=== PATIENT | female | born 1975 | race Caucasian/White ===

== ENCOUNTER 2018-04-30 06:37 | Emergency (ER) | payer BC, OTHER ==
[2018-04-30] MEDS ORDERED: NA CHLORIDE 0.9% 1,000 ML ONE (07:14)
[2018-04-30] MEDS ORDERED: MORPHINE 4 MG/ML SYR ONE ×3 (07:14→09:34)
[2018-04-30] MEDS ORDERED: ONDANSETRON 4 MG/2 ML VIAL ONE (07:14)
--- NOTE | 2018-04-30 07:36 | RAD REPORT ---
EXAM DESCRIPTION: CTAbdomen Pelvis W Contrast - 04/30/2018 7:29 am CLINICAL HISTORY: Abdominal pain. IV only;Abd pain COMPARISON: No comparisons TECHNIQUE: Biphasic CT imaging of the abdomen and pelvis was performed with 100 ml non-ionic IV cont rast. All CT scans are performed using dose optimization technique as appropriate and may include automated exposure control or mA/KV adjustment according to patient size. FINDINGS: The lung bases are clear. The liver, spleen, pancreas, adrenal glands and kidneys are within normal limits. No bowel obstruction, free air, free fluid or abscess. Moderate the colonic inflammatory changes are seen in the left lower quadrant of the abdomen surrounding a short segment of sigmoid colon with are multiple diverticula. This is compatible with moderate acute diverticulitis. No abscess seen. The meredith endix is normal. No evidence of significant lymphadenopathy. No suspicious bony findings. IMPRESSION: Moderate acute left lower quadrant diverticulitis without abscess.
[2018-04-30 07:54] LABS: Albumin 3.7 g/dL (3.4-5.0); Bilirubin Direct 0.2 mg/dL (0-0.2); Bilirubin Total 1.2 mg/dL (0.2-1.0); Protein, Total 8.4 g/dL (6.4-8.2)
[2018-04-30 07:55] LABS: Absolute Lymphocytes (CBC) 2.2 K/uL (0.7-4.9); Absolute Monocytes 1.2 K/uL (0.1-1.3); Absolute Neutrophil 16.1 K/uL (1.8-8.0); Basophils % 0.2 % (0-1.3); Eosinophils % 0.4 % (0-4.4); Hematocrit 41.3 % (36.0-45.0); Lymphocytes % 11.3 % (15.3-44.8); MCH 30.2 pg (27.0-35.0); MCV 89.1 fL (80-100); MPV 9.1 fL (7.6-11.3); Monocytes % 6.3 % (3.3-12.3); RBC Red Blood Cell Count 4.63 M/uL (3.86-4.86)
[2018-04-30] MEDS ORDERED: CIPROFLOXACIN HCL 500 MG TAB ONE (08:20)
[2018-04-30] MEDS ORDERED: METRONIDAZOLE 500mg IVPB 500 MG/100 ML BAG IV ONE (08:21)
--- NOTE | 2018-04-30 09:09 | ER ---
Nurse's Notes [facility] Name: Teri Yates Age: 42 yrs Sex: Female : 1975 Arrival Date: 04/30/2018 Time: 06:41 Bed 8 Private MD: Diagnosis: Diverticulitis of large intestine without perforation or abscess without bleeding Presentation: 04/30 06:59 Presenting complaint: Patient states: LLQ abd pain for the last month, worse recently, la1 N/V. Transition of care: patient was not received from another setting of care. Onset of symptoms was April 30, 2018. Risk Assessment: Do you want to hurt yourself or someone else? Patient reports no desire to harm self or others. Initial Sepsis Screen: Does the patient meet any 2 criteria? No. Patient's initial sepsis screen is negative. Does the patient have a suspected source of infection? No. Patient's initial sepsis screen is negative. Care prior to arrival: None. 06:59 Method Of Arrival: Ambulatory la1 06:59 Acuity: LORNA 3 la1 Historical: - Allergies: 07:00 Sulfa (Sulfonamide Antibiotics); la1 - Home Meds: 07:02 estradiol 1 mg Oral tab 1 tab once daily [Active]; ondansetron HCl 4 mg Oral tab 2 tabs la1 every 8 hours [Active]; progesterone micronized 200 mg oral cap 1 cap once daily [Active]; escitalopram oxalate 10 mg oral tab 1 tab once daily [Active]; lisinopril 10 mg Oral tab 1 tab once daily [Active]; - PMHx: 07:00 Diverticulitis; Hypertension; la1 - PSHx: 07:00 bladder sx; la1 07:14 Hysterectomy; Tubal ligation; rh1 - Immunization history:: Adult Immunizations up to date. - Social history:: Smoking status: unknown. - Ebola Screening: : No symptoms or risks identified at this time. Screenin:21 Abuse screen: Denies threats or abuse. Nutritional screening: No deficits noted. la1 Tuberculosis screening: No symptoms or risk factors identified. Fall Risk None identified. Assessment: 07:21 General: Appears uncomfortable, Behavior is calm, cooperative. Pain: Complains of pain la1 in left lower quadrant. Neuro: Level of Consciousness is awake, alert, obeys commands, Oriented to person, place, time, situation. Cardiovascular: Capillary refill < 3 seconds Patient's skin is warm and dry. Respiratory: Airway is patent Respiratory effort is even, unlabored, Respiratory pattern is regular, symmetrical, Breath sounds are clear bilaterally. GI: Abdomen is round non-distended, Bowel sounds present X 4 quads. Abd is soft X 4 quads Abdomen is tender to palpation in left upper quadrant and left lower quadrant. : No signs and/or symptoms were reported regarding the genitourinary system. 08:38 Reassessment: Patient appears in no apparent distress at this time. No changes from la1 previously documented assessment. Patient and/or family updated on plan of care and expected duration. Pain level reassessed. 09:54 Reassessment: Patient appears in no apparent distress at this time. No changes from la1 previously documented assessment. Patient and/or family updated on plan of care and expected duration. Pain level reassessed. Patient is alert, oriented x 3, equal unlabored respirations, skin warm/dry/pink. 09:54 Reassessment: pt awaiting ride, instructed to return to ER with worsening pain or la1 unable to tolerate PO. Vital Signs: 07:00 BP 129 / 104; Pulse 113; Resp 18; Pulse Ox 100% on R/A; la1 07:05 Temp 97.8(O); Weight 70.31 kg; la1 07:40 BP 122 / 70; Pulse 83; Resp 16; Pulse Ox 97% on R/A; la1 09:15 BP 113 / 78; Pulse 73; Resp 17; Pulse Ox 98% on R/A; Pain 6/10; sg 09:54 BP 120 / 74; Pulse 81; Resp 16; Pulse Ox 98% on R/A; la1 ED Course: 06:41 Patient arrived in ED. ag3 06:49 Kesha Whitman NP is PHCP. rh1 06:49 Aguilar Luna MD is Attending Physician. rh1 06:58 Fei Montes, ROJAS is Primary Nurse. la1 06:59 Triage completed. la1 07:01 Arm band placed on left wrist. la1 07:10 Radiology exam delayed due to test not completed at this time. mw3 07:17 Urine collected: clean catch specimen, clear, melissa colored. jb1 07:21 Inserted saline lock: 20 gauge in right antecubital area, using aseptic technique. la1 Blood collected. 07:22 Call light in reach. Side rails up X 1. la1 07:29 CT Abd/Pelvis - W/Contrast In Process Unspecified. EDMS 09:08 Gian Carrillo MD is Referral Physician. rh1 09:53 No provider procedures requiring assistance completed. IV discontinued, intact, la1 bleeding controlled, No redness/swelling at site. Pressure dressing applied. Administered Medications: 07:20 Drug: morphine 4 mg Route: IVP; Site: right antecubital; la1 07:36 Follow up: Response: No adverse reaction; Pain is decreased la1 09:53 Follow up: Response: No adverse reaction; Pain is decreased la1 07:20 Drug: Zofran 4 mg Route: IVP; Site: right antecubital; la1 07:36 Follow up: Response: No adverse reaction la1 07:21 Drug: NS 0.9% 1000 ml Route: IV; Rate: 1 bolus; Site: right antecubital; la1 09:53 Follow up: IV Status: Completed infusion la1 08:20 Drug: morphine 4 mg Route: IVP; Site: right antecubital; sg 09:25 Follow up: Response: No adverse reaction; No change in condition sg 08:20 Drug: Cipro 500 mg Route: PO; sg 09:25 Follow up: Response: No adverse reaction sg 08:20 Drug: Flagyl 500 mg Volume: 100 ml; Route: IVPB; Rate: 200 ml/hr; Infused Over: 30 sg mins; Site: right antecubital; 09:25 Follow up: Response: No adverse reaction; IV Status: Completed infusion sg 09:53 Follow up: IV Status: Completed infusion la1 09:30 Drug: morphine 4 mg Route: IVP; Site: right antecubital; sg 09:53 Follow up: Response: No adverse reaction; Pain is decreased la1 Outcome: 09:08 Discharge ordered by . rh1 09:53 Discharged to home ambulatory. la1 09:53 Condition: stable 09:53 Discharge instructions given to patient, Instructed on discharge instructions, follow up and referral plans. medication usage, Demonstrated understanding of instructions, follow-up care, medications. 10:16 Patient left the ED. la1 Signatures: Dispatcher [employer] EDVT Dany Roman jb1 Sharan Cole RN RN sg Fei Montes RN RN la1 Kesha Whitman, TENNIS INSTRUCTOR TENNIS INSTRUCTOR [email or web address] Senait Pearson 3 Raquel Mazariegos 3
--- NOTE | 2018-04-30 09:09 | EDPHYS ---
Physician Documentation [facility] Name: Teri Yates Age: 42 yrs Sex: Female : 1975 Arrival Date: 04/30/2018 Time: 06:41 Bed 8 Private MD: ED Physician Aguilar Luna HPI: 04/30 06:53 This 42 yrs old Female presents to ER via Ambulatory with complaints of rh1 Abdominal Pain. 06:53 The patient presents with abdominal pain in the lower abdomen, in the left lower rh1 quadrant. Onset: The symptoms/episode began/occurred 1 month(s) ago, and became worse 3 day(s) ago. The symptoms do not radiate. Associated signs and symptoms: Pertinent positives: nausea and vomiting, Pertinent negatives: blood in stools, diarrhea, dysuria, fever, vomiting blood. The symptoms are described as sharp, stabbing. Modifying factors: The symptoms are alleviated by nothing, the symptoms are aggravated by movement, pressure. Severity of pain: At its worst the pain was moderate in the emergency department the pain is unchanged. The patient has experienced a previous episode. The patient has been recently seen by a physician: 1 month(s) ago, with similar presenting complaints, and apparently given a diagnosis of diverticulitis at [facility] ([facility] Left lower abdominal pain began 3 days ago, gradually increasing. + N/V. She was seen 1 month ago at [facility] (formerly [facility]) for upper abdominal pain, dx with diverticulitis. She reports this pain is different than previous. She had f/u appointment with Dr. Carrillo, told symptoms not from diverticulitis, but "CT was abnormal," has pending labs and stool studies. She has no fever, last BM 2 days ago. No symptoms.. Historical: - Allergies: 07:00 Sulfa (Sulfonamide Antibiotics); la1 - Home Meds: 07:02 estradiol 1 mg Oral tab 1 tab once daily [Active]; ondansetron HCl 4 mg Oral tab 2 tabs la1 every 8 hours [Active]; progesterone micronized 200 mg oral cap 1 cap once daily [Active]; escitalopram oxalate 10 mg oral tab 1 tab once daily [Active]; lisinopril 10 mg Oral tab 1 tab once daily [Active]; - PMHx: 07:00 Diverticulitis; Hypertension; la1 - PSHx: 07:00 bladder sx; la1 07:14 Hysterectomy; Tubal ligation; rh1 - Immunization history:: Adult Immunizations up to date. - Social history:: Smoking status: unknown. - Ebola Screening: : No symptoms or risks identified at this time. ROS: 06:53 Constitutional: Negative for fever, chills rh1 06:53 Abdomen/GI: Positive for abdominal pain, nausea and vomiting, Negative for constipation, hematemesis, black/tarry stool, rectal bleeding. 06:53 Back: Negative for decreased range of motion, pain at rest, pain with movement, radiated pain. 06:53 : Negative for small amounts, burning with urination, vaginal discharge. 06:53 All other systems are negative. Exam: 06:53 Constitutional: This is a well developed, well nourished patient who is awake, alert, rh1 and in no acute distress. Head/Face: Normocephalic, atraumatic. 06:53 Neck: Trachea midline, and no cervical lymphadenopathy. Supple, full range of motion without nuchal rigidity. No Meningismus. Cardiovascular: Regular rate and rhythm with a normal S1 and S2. No gallops, murmurs, or rubs. No JVD. No pulse deficits. Respiratory: Lungs have equal breath sounds bilaterally, clear to auscultation. No rales, rhonchi or wheezes noted. No increased work of breathing. 06:53 Back: No spinal tenderness. No costovertebral tenderness. Full range of motion. Skin: Warm, dry with normal turgor. Normal color with no rashes, no lesions, and no evidence of cellulitis. 06:53 Constitutional: The patient appears uncomfortable. 06:53 Abdomen/GI: Inspection: abdomen appears normal, bruising, is not seen, distension, is not seen, Bowel sounds: normal, in all quadrants, active, all quadrants, Palpation: soft, in all quadrants, moderate abdominal tenderness, in the right upper quadrant, left upper quadrant, right lower quadrant and left lower quadrant, greatest LLQ, rebound tenderness, is not appreciated, Indicators: McBurney's point is not tender, Bates's sign is negative, Rovsing's sign is negative, Liver: no appreciated palpable abnormalities. 06:53 Neuro: Orientation: is normal, to person, place \\T\\ time. Mentation: is normal, lucid, able to follow commands, Motor: is normal, strength is normal, Sensation: is normal, no obvious gross deficits, Gait: is steady, at a normal pace, without difficulty. Vital Signs: 07:00 BP 129 / 104; Pulse 113; Resp 18; Pulse Ox 100% on R/A; la1 07:05 Temp 97.8(O); Weight 70.31 kg; la1 07:40 BP 122 / 70; Pulse 83; Resp 16; Pulse Ox 97% on R/A; la1 09:15 BP 113 / 78; Pulse 73; Resp 17; Pulse Ox 98% on R/A; Pain 6/10; sg 09:54 BP 120 / 74; Pulse 81; Resp 16; Pulse Ox 98% on R/A; la1 MDM: 06:53 Patient medically screened. rh1 09:07 Data reviewed: vital signs, nurses notes, lab test result(s), radiologic studies, CT rh1 scan, and as a result, I will discharge patient. Data interpreted: Pulse oximetry: on room air is 97 %. Interpretation: normal. Counseling: I had a detailed discussion with the patient and/or guardian regarding: the historical points, exam findings, and any diagnostic results supporting the discharge/admit diagnosis, lab results, radiology results, the need for outpatient follow up, a forming machine tender, to return to the emergency department if symptoms worsen or persist or if there are any questions or concerns that arise at home. ED course: pain improved, tolerating PO, discussed to follow up with Dr. Carrillo. 04/30 07:05 Order name: Basic Metabolic Panel; Complete Time: 07:57 04/30 07:05 Order name: CBC with Diff; Complete Time: 07:57 04/30 07:05 Order name: Creatinine for Radiology; Complete Time: 08:10 04/30 07:05 Order name: Hepatic Function; Complete Time: 07:57 04/30 07:05 Order name: Lipase; Complete Time: 07:57 04/30 07:17 Order name: Urine Dipstick--Ancillary (enter results) ms 04/30 07:05 Order name: CT Abd/Pelvis - W/Contrast; Complete Time: 07:44 04/30 07:05 Order name: IV Saline Lock; Complete Time: 07:21 04/30 07:05 Order name: Labs collected and sent; Complete Time: 07:21 04/30 07:05 Order name: Urine Dipstick-Ancillary (obtain specimen); Complete Time: 07:17 04/30 07:45 Order name: PO challenge; Complete Time: 07:48 rh1 Administered Medications: 07:20 Drug: morphine 4 mg Route: IVP; Site: right antecubital; la1 07:36 Follow up: Response: No adverse reaction; Pain is decreased la1 09:53 Follow up: Response: No adverse reaction; Pain is decreased la1 07:20 Drug: Zofran 4 mg Route: IVP; Site: right antecubital; la1 07:36 Follow up: Response: No adverse reaction la1 07:21 Drug: NS 0.9% 1000 ml Route: IV; Rate: 1 bolus; Site: right antecubital; la1 09:53 Follow up: IV Status: Completed infusion la1 08:20 Drug: morphine 4 mg Route: IVP; Site: right antecubital; sg 09:25 Follow up: Response: No adverse reaction; No change in condition sg 08:20 Drug: Cipro 500 mg Route: PO; sg 09:25 Follow up: Response: No adverse reaction sg 08:20 Drug: Flagyl 500 mg Volume: 100 ml; Route: IVPB; Rate: 200 ml/hr; Infused Over: 30 sg mins; Site: right antecubital; 09:25 Follow up: Response: No adverse reaction; IV Status: Completed infusion sg 09:53 Follow up: IV Status: Completed infusion la1 09:30 Drug: morphine 4 mg Route: IVP; Site: right antecubital; sg 09:53 Follow up: Response: No adverse reaction; Pain is decreased la1 Disposition: 18:27 Co-signature as Attending Physician, Aguilar Luna MD. Disposition: 04/30/18 09:08 Discharged to Home. Impression: Diverticulitis of large intestine without perforation or abscess without bleeding. - Condition is Stable. - Discharge Instructions: Diverticulitis. - Prescriptions for Flagyl 500 mg Oral Tablet - take 1 tablet by ORAL route every 8 hours for 10 days; 30 tablet. Cipro 500 mg Oral Tablet - take 1 tablet by ORAL route every 12 hours for 10 days; 20 tablet. Tylenol- Codeine #3 300-30 mg Oral Tablet - take 2 tablet by ORAL route every 6 hours As needed; 6 tablet. - Medication Reconciliation Form, Thank You Letter, Antibiotic Education, Prescription Opioid Use form. - Follow up: Gian Carrillo; When: 1 - 2 days; Reason: Recheck today's complaints, Continuance of care, Re-evaluation by your physician. Follow up: Emergency Department; When: As needed; Reason: Fever > 102 F, If symptoms return, Trouble breathing, Worsening of condition. - Problem is new. - Symptoms have improved. Signatures: Dispatcher [employer] EDMS Sharan Cole RN RN sg Fei Montes RN RN la1 Kesha Whitman, PC INSTALLATION ENGINEER PC INSTALLATION ENGINEER rh1 Aguilar Luna MD MD gs Corrections: (The following items were deleted from the chart) 10:16 09:08 04/30/2018 09:08 Discharged to Home. Impression: Diverticulitis of large la1 intestine without perforation or abscess without bleeding. Condition is Stable. Discharge Instructions: Diverticulitis. Prescriptions for Flagyl 500 mg Oral Tablet - take 1 tablet by ORAL route every 8 hours for 10 days; 30 tablet, Cipro 500 mg Oral Tablet - take 1 tablet by ORAL route every 12 hours for 10 days; 20 tablet, Tylenol-Codeine #3 300-30 mg Oral Tablet - take 2 tablet by ORAL route every 6 hours As needed; 6 tablet. and Forms are Medication Reconciliation Form, Thank You Letter, Antibiotic Education, Prescription Opioid Use. Follow up: Gian Carrillo; When: 1 - 2 days; Reason: Recheck today's complaints, Continuance of care, Re-evaluation by your physician. Follow up: Emergency Department; When: As needed; Reason: Fever > 102 F, If symptoms return, Trouble breathing, Worsening of condition. Problem is new. Symptoms have improved. rh1
[2018-04-30 18:26] LABS: Urine Blood NEGATIVE (NEG); Urine Glucose NEGATIVE (NEG); Urine Protein NEGATIVE (NEG); Urine pH 5.5 (5.0-7.0)
== END 2018-04-30 10:16 | disposition home or self-care (01) ==
LOC: ER 06:37
DX: K57.32 Diverticulitis of large intestine without perforation or abscess without bleeding (principal); I10 Essential (primary) hypertension; Z88.2 Allergy status to sulfonamides
CPT/HCPCS: 36415; 74177; 80048; 80076; 81003; 83690; 85025; 96361; 96365; 96375; 99284; J2405; J7030; Q9967

== ENCOUNTER 2018-07-19 21:17 | Inpatient (IN) | payer BC ==
--- NOTE | 2018-07-19 21:50 | ER ---
Nurse's Notes [facility] Name: Teri Yates Age: 42 yrs Sex: Female : 1975 Arrival Date: 07/19/2018 Time: 21:20 Bed 24 Private MD: Milton English Diagnosis: Abdominal tenderness;Diverticular disease of intestine;Diverticulitis of large intestine without perforation or abscess without bleeding Presentation: 07/19 21:24 Presenting complaint: Patient states: "I've been having a flare up of diverticulitis aj1 for about 8 days. I went to Dr. Carrillo's office today and his PA sent me over here for a CT scan and blood work and she prescribed some meds. I started feeling worse, I knew I was going to have trouble holding them down so I took 2 Tylenol #3 and nausea medicine and then just ended up vomiting it all, the pain is so much worse, I'm dizzy, I'm light-headed." Reports that she had CT scan and blood work done outpatient today. Transition of care: patient was not received from another setting of care. Onset of symptoms was July 19, 2018. Risk Assessment: Do you want to hurt yourself or someone else? Patient reports no desire to harm self or others. Initial Sepsis Screen: Does the patient meet any 2 criteria? HR > 90 bpm. No. Patient's initial sepsis screen is negative. Does the patient have a suspected source of infection? Yes: Acute abdominal pain. Care prior to arrival: None. 21:24 Method Of Arrival: Ambulatory aj1 21:24 Acuity: LORNA 3 aj1 Triage Assessment: 21:27 General: Appears uncomfortable, Behavior is cooperative, restless. Pain: Pain currently aj1 is 10 out of 10 on a pain scale. Pain: Complains of pain in abdomen diffusely Pain currently is 10 out of 10 on a pain scale. Neuro: Level of Consciousness is awake, alert, obeys commands. Cardiovascular: Patient's skin is warm and dry. Respiratory: Airway is patent Respiratory effort is even, unlabored, Respiratory pattern is regular, symmetrical. GI: Reports nausea, vomiting. GLOBAL MARKETING INTERN: 21:27 LMP N/A - Hysterectomy aj1 Historical: - Allergies: 21:27 Sulfa (Sulfonamide Antibiotics); aj1 - Home Meds: 21:27 escitalopram oxalate 10 mg Oral tab 1 tab once daily [Active]; estradiol 1 mg Oral tab aj1 1 tab once daily [Active]; lisinopril 10 mg Oral tab 1 tab once daily [Active]; ondansetron HCl 4 mg Oral tab 2 tabs every 8 hours [Active]; progesterone micronized 200 mg Oral cap 1 cap once daily [Active]; - PMHx: 21:27 Diverticulitis; Hypertension; aj1 - Immunization history:: Flu vaccine is up to date. - Social history:: Smoking status: Patient/guardian denies using tobacco. - Ebola Screening: : Patient denies travel to an Ebola-affected area in the 21 days before illness onset. - Family history:: not pertinent. Screenin:59 Abuse screen: Denies threats or abuse. Nutritional screening: No deficits noted. la1 Tuberculosis screening: No symptoms or risk factors identified. Fall Risk None identified. Assessment: 21:58 General: Appears uncomfortable, Behavior is cooperative. Pain: Complains of pain in la1 right lower quadrant and left lower quadrant and left upper quadrant and abdomen diffusely Pain currently is 10 out of 10 on a pain scale. Neuro: Level of Consciousness is awake, alert, obeys commands, Oriented to person, place, time, situation. Cardiovascular: Heart tones S1 S2 present Capillary refill < 3 seconds Patient's skin is warm and dry. Respiratory: Airway is patent Trachea midline Respiratory effort is even, unlabored, Respiratory pattern is regular, symmetrical. GI: Abdomen is round non-distended, Bowel sounds present X 4 quads. Abd is soft X 4 quads Abdomen is tender to palpation X 4 quads. Reports nausea, vomiting. : No signs and/or symptoms were reported regarding the genitourinary system. 07/20 00:09 Reassessment: Patient appears in no apparent distress at this time. No changes from la1 previously documented assessment. Patient and/or family updated on plan of care and expected duration. Pain level reassessed. Patient is alert, oriented x 3, equal unlabored respirations, skin warm/dry/pink. Vital Signs: 07/19 21:27 BP 158 / 102; Pulse 115; Resp 18; Pulse Ox 98% ; Weight 71.67 kg (R); Pain 10/10; aj1 23:32 BP 119 / 91; Pulse 71; Resp 16; Temp 98.7(TE); Pulse Ox 100% on R/A; la1 07/20 00:21 BP 136 / 74; Pulse 71; Resp 16; Pulse Ox 98% on R/A; la1 ED Course: 07/19 21:20 Patient arrived in ED. es 21:21 Milton English MD is Private Physician. es 21:26 Triage completed. aj1 21:27 Arm band placed on Patient placed in an exam room. aj1 21:35 Bebeto Henao MD is Attending Physician. bharti 21:38 Fei Montes RN is Primary Nurse. la1 21:45 Inserted saline lock: 20 gauge in left antecubital area, using aseptic technique. Blood jp3 collected. 21:45 Initial lab(s) drawn, by me, sent to lab. Patient maintains SpO2 saturation greater jp3 than 95% on room air. 21:49 Lizzy Orosco MD is Hospitalizing Provider. bharti 21:53 Bed in low position. Call light in reach. Side rails up X 1. Side rails up X2. Warm jp3 blanket given. Pillow given. Pulse ox on. NIBP on. 21:53 Basic Metabolic Panel Sent. jp3 21:53 CBC with Diff Sent. jp3 21:53 Creatinine for Radiology Sent. jp3 21:53 Hepatic Function Sent. jp3 21:54 Lipase Sent. jp3 21:54 Creatinine (Radiology Only) Sent. jp3 21:54 Basic Metabolic Panel Sent. jp3 21:54 CBC with Automated Diff Sent. jp3 07/20 01:03 No provider procedures requiring assistance completed. Patient admitted, IV remains in la1 place. Administered Medications: 07/19 22:01 Drug: Zofran 4 mg Route: IVP; Site: left antecubital; la1 22:21 Follow up: Response: No adverse reaction; Nausea is decreased la1 22:01 Drug: Flagyl 500 mg Volume: 100 ml; Route: IVPB; Rate: 200 ml/hr; Infused Over: 30 la1 mins; Site: left antecubital; 23:09 Follow up: IV Status: Completed infusion la1 22:02 Drug: NS 0.9% 1000 ml Route: IV; Rate: 1 bolus; Site: left antecubital; la1 22:22 Follow up: IV Status: Completed infusion la1 22:02 Drug: morphine 4 mg Route: IVP; Site: left antecubital; la1 22:22 Follow up: Response: No adverse reaction; Pain is decreased la1 22:03 Drug: Zofran 4 mg Route: IVP; Site: left antecubital; la1 22:21 Follow up: Response: No adverse reaction la1 23:28 Drug: Phenergan 12.5 mg Route: IVP; Site: left antecubital; la1 23:28 Follow up: Response: Nausea is decreased la1 23:28 Drug: Rocephin - (cefTRIAXone) 1 grams Route: IVPB; Infused Over: 30 mins; Site: left la1 antecubital; 23:28 Follow up: IV Status: Completed infusion la1 23:28 Drug: morphine 4 mg Route: IVP; Site: left antecubital; la1 23:29 Follow up: Response: No adverse reaction; Pain is decreased in1 07/20 00:08 Drug: NS 0.9% 1000 ml Route: IV; Rate: 1 bolus; Site: left antecubital; la1 00:15 Follow up: IV Status: Infusion continued upon admission la1 00:08 Drug: levofloxacin 750 mg Volume: 150 ml; Route: IVPB; Infused Over: 90 mins; Site: la1 left antecubital; 00:15 Follow up: IV Status: Infusion continued upon admission la1 Outcome: 07/19 21:50 Decision to Hospitalize by Provider. [facility] 07/20 01:03 Admitted to Tele accompanied by nurse, via stretcher, room 420, with chart. la1 Condition: stable Instructed on the need for admit. 01:03 Patient left the ED. la1 Signatures: Taryn Briggs, RN RN chase1 Bebeto Henao MD MD cha Salyer, Edna es Attema, Lee, RN RN la1 John Samuel jp3
--- NOTE | 2018-07-19 21:51 | EDPHYS ---
Physician Documentation [facility] Name: Teri Yates Age: 42 yrs Sex: Female : 1975 Arrival Date: 07/19/2018 Time: 21:20 Bed 24 Private MD: Milton English ED Physician Bebeto Henao HPI: 07/19 21:46 This 42 yrs old Female presents to ER via Ambulatory with complaints of bharti Abdominal Pain, Vomiting, Dizziness. 21:46 The patient presents to the emergency department with nausea, abdominal pain, of the bharti suprapubic area, left upper quadrant and left lower quadrant. Onset: The symptoms/episode began/occurred 2 day(s) ago. Possible causes: unknown. The symptoms are aggravated by movement, pressure. Associated signs and symptoms: The patient has no apparent associated signs or symptoms. Severity of symptoms: At their worst the symptoms were mild in the emergency department the symptoms are unchanged. The patient has not experienced similar symptoms in the past. [employer]: 21:27 LMP N/A - Hysterectomy aj1 Historical: - Allergies: 21:27 Sulfa (Sulfonamide Antibiotics); aj1 - Home Meds: 21:27 escitalopram oxalate 10 mg Oral tab 1 tab once daily [Active]; estradiol 1 mg Oral tab aj1 1 tab once daily [Active]; lisinopril 10 mg Oral tab 1 tab once daily [Active]; ondansetron HCl 4 mg Oral tab 2 tabs every 8 hours [Active]; progesterone micronized 200 mg Oral cap 1 cap once daily [Active]; - PMHx: 21:27 Diverticulitis; Hypertension; aj1 - Immunization history:: Flu vaccine is up to date. - Social history:: Smoking status: Patient/guardian denies using tobacco. - Ebola Screening: : Patient denies travel to an Ebola-affected area in the 21 days before illness onset. - Family history:: not pertinent. ROS: 21:46 Eyes: Negative for injury, pain, redness, and discharge, ENT: Negative for injury, bharti pain, and discharge, Neck: Negative for injury, pain, and swelling, Cardiovascular: Negative for chest pain, palpitations, and edema, Respiratory: Negative for shortness of breath, cough, wheezing, and pleuritic chest pain, Back: Negative for injury and pain, : Negative for injury, bleeding, discharge, and swelling, MS/Extremity: Negative for injury and deformity, Skin: Negative for injury, rash, and discoloration, Neuro: Negative for headache, weakness, numbness, tingling, and seizure, Psych: Negative for depression, anxiety, suicide ideation, homicidal ideation, and hallucinations, Allergy/Immunology: Negative for hives, rash, and allergies, Endocrine: Negative for neck swelling, polydipsia, polyuria, polyphagia, and marked weight changes. 21:46 Constitutional: Positive for malaise, poor PO intake. Exam: 21:46 Constitutional: This is a well developed, well nourished patient who is awake, alert, bharti and in no acute distress. Head/Face: Normocephalic, atraumatic. Eyes: Pupils equal round and reactive to light, extra-ocular motions intact. Lids and lashes normal. Conjunctiva and sclera are non-icteric and not injected. Cornea within normal limits. Periorbital areas with no swelling, redness, or edema. ENT: Nares patent. No nasal discharge, no septal abnormalities noted. Tympanic membranes are normal and external auditory canals are clear. Oropharynx with no redness, swelling, or masses, exudates, or evidence of obstruction, uvula midline. Mucous membranes moist. Neck: Trachea midline, no thyromegaly or masses palpated, and no cervical lymphadenopathy. Supple, full range of motion without nuchal rigidity, or vertebral point tenderness. No Meningismus. Chest/axilla: Normal chest wall appearance and motion. Nontender with no deformity. No lesions are appreciated. Cardiovascular: Regular rate and rhythm with a normal S1 and S2. No gallops, murmurs, or rubs. Normal PMI, no JVD. No pulse deficits. Respiratory: Lungs have equal breath sounds bilaterally, clear to auscultation and percussion. No rales, rhonchi or wheezes noted. No increased work of breathing, no retractions or nasal flaring. Back: No spinal tenderness. No costovertebral tenderness. Full range of motion. Female : Normal external genitalia. Skin: Warm, dry with normal turgor. Normal color with no rashes, no lesions, and no evidence of cellulitis. MS/ Extremity: Pulses equal, no cyanosis. Neurovascular intact. Full, normal range of motion. Neuro: Awake and alert, GCS 15, oriented to person, place, time, and situation. Cranial nerves II-XII grossly intact. Motor strength 5/5 in all extremities. Sensory grossly intact. Cerebellar exam normal. Normal gait. Psych: Awake, alert, with orientation to person, place and time. Behavior, mood, and affect are within normal limits. 21:46 Abdomen/GI: Inspection: abdomen appears normal, Bowel sounds: normal, Palpation: moderate abdominal tenderness, in the right lower quadrant and left lower quadrant, Liver: no appreciated palpable abnormalities, Hernia: not appreciated. Vital Signs: 21:27 BP 158 / 102; Pulse 115; Resp 18; Pulse Ox 98% ; Weight 71.67 kg (R); Pain 10/10; aj1 23:32 BP 119 / 91; Pulse 71; Resp 16; Temp 98.7(TE); Pulse Ox 100% on R/A; la1 07/20 00:21 BP 136 / 74; Pulse 71; Resp 16; Pulse Ox 98% on R/A; la1 MDM: 07/19 21:[address] [facility] 21:56 Data reviewed: vital signs, nurses notes, lab test result(s), radiologic studies, CT [facility] scan. 07/19 21:46 Order name: Basic Metabolic Panel [facility] 07/19 21:46 Order name: CBC with Diff [facility] 07/19 21:46 Order name: Creatinine for Radiology [facility] 07/19 21:46 Order name: Hepatic Function; Complete Time: 22:37 [facility] 07/19 21:46 Order name: Lipase; Complete Time: 22:37 [facility] 07/19 21:46 Order name: Urine Culture [facility] 07/19 21:46 Order name: Basic Metabolic Panel; Complete Time: 22:37 [facility] 07/19 21:46 Order name: CBC with Automated Diff; Complete Time: 22:37 [facility] 07/19 21:46 Order name: Creatinine (Radiology Only); Complete Time: 22:37 [facility] 07/20 00:44 Order name: Urine Dipstick--[facility]cillary ([facility] results[facility] 07/[facility] 21:46 Order name: IV Saline Lock; Complete Time: 21:53 [facility] 07/19 21:46 Order name: Labs collected and sent; Complete Time: 21:53 [facility] 07/19 21:46 Order name: Urine Dipstick-Ancillary (obtain specimen); Complete Time: 00:34 [facility] Administered Medications: 22:01 Drug: Zofran 4 mg Route: IVP; Site: left antecubital; la1 22:21 Follow up: Response: No adverse reaction; Nausea is decreased la1 22:01 Drug: Flagyl 500 mg Volume: 100 ml; Route: IVPB; Rate: 200 ml/hr; Infused Over: 30 la1 mins; Site: left antecubital; 23:09 Follow up: IV Status: Completed infusion la1 22:02 Drug: NS 0.9% 1000 ml Route: IV; Rate: 1 bolus; Site: left antecubital; la1 22:22 Follow up: IV Status: Completed infusion la1 22:02 Drug: morphine 4 mg Route: IVP; Site: left antecubital; la1 22:22 Follow up: Response: No adverse reaction; Pain is decreased la1 22:03 Drug: Zofran 4 mg Route: IVP; Site: left antecubital; la1 22:21 Follow up: Response: No adverse reaction la1 23:28 Drug: Phenergan 12.5 mg Route: IVP; Site: left antecubital; la1 23:28 Follow up: Response: Nausea is decreased la1 23:28 Drug: Rocephin - (cefTRIAXone) 1 grams Route: IVPB; Infused Over: 30 mins; Site: left la1 antecubital; 23:28 Follow up: IV Status: Completed infusion la1 23:28 Drug: morphine 4 mg Route: IVP; Site: left antecubital; la1 23:29 Follow up: Response: No adverse reaction; Pain is decreased la1 07/20 00:08 Drug: NS 0.9% 1000 ml Route: IV; Rate: 1 bolus; Site: left antecubital; la1 00:15 Follow up: IV Status: Infusion continued upon admission la1 00:08 Drug: levofloxacin 750 mg Volume: 150 ml; Route: IVPB; Infused Over: 90 mins; Site: la1 left antecubital; 00:15 Follow up: IV Status: Infusion continued upon admission la1 Disposition: 07/19/18 21:50 Hospitalization ordered by Lizzy Orosco for Inpatient Admission. Preliminary diagnosis are Abdominal tenderness, Diverticular disease of intestine, Diverticulitis of large intestine without perforation or abscess without bleeding. - Bed requested for Telemetry/MedSurg (Inpatient). - Status is Inpatient Admission. la1 - Condition is Fair. - Problem is new. - Symptoms have improved. UTI on Admission? No Signatures: Dispatcher [employer] EDTaryn Thapa, RN RN aj1 Bebeto Henao MD MD cha Attema, Lee RN RN la1 Madison Davila RN RN cg Corrections: (The following items were deleted from the chart) 00:13 07/19 21:50 Hospitalization Ordered by Lizzy Orosco MD for Inpatient Admission. cg Preliminary diagnosis is Abdominal tenderness; Diverticular disease of intestine; Diverticulitis of large intestine without perforation or abscess without bleeding. Bed requested for Telemetry/MedSurg (Inpatient). Status is Inpatient Admission. Condition is Fair. Problem is new. Symptoms have improved. UTI on Admission? No. [facility] 07/20 01:03 00:13 07/19/2018 21:50 Hospitalization Ordered by Lizzy Orosco MD for Inpatient la1 Admission. Preliminary diagnosis is Abdominal tenderness; Diverticular disease of intestine; Diverticulitis of large intestine without perforation or abscess without bleeding. Bed requested for Telemetry/MedSurg (Inpatient). Status is Inpatient Admission. Condition is Fair. Problem is new. Symptoms have improved. UTI on Admission? No. cg
[2018-07-19] MEDS ORDERED: Levofloxacin 750mg IV 750 MG/150 ML BAG IV ONE (21:57)
[2018-07-19] MEDS ORDERED: ONDANSETRON 4 MG/2 ML VIAL ONE ×2 (21:57→22:04)
[2018-07-19] MEDS ORDERED: METRONIDAZOLE 500mg IVPB 500 MG/100 ML BAG IV ONE (21:57)
[2018-07-19] MEDS ORDERED: NA CHLORIDE 0.9% 2,000 ML ONE (21:57)
[2018-07-19] MEDS ORDERED: MORPHINE 4 MG/ML SYR ONE ×2 (21:57→23:23)
[2018-07-19 22:00] LABS: Absolute Lymphocytes (CBC) 3.1 K/uL (0.7-4.9); Absolute Monocytes 0.8 K/uL (0.1-1.3); Absolute Neutrophil 14.6 K/uL (1.8-8.0); Basophils % 0.4 % (0-1.3); Eosinophils % 0.3 % (0-4.4); Hematocrit 46.3 % (36.0-45.0); Lymphocytes % 16.5 % (15.3-44.8); MPV 8.3 fL (7.6-11.3); Monocytes % 4.1 % (3.3-12.3)
[2018-07-19 22:16] LABS: Albumin 3.7 g/dL (3.4-5.0); Bilirubin Direct 0.1 mg/dL (0-0.2); Bilirubin Total 0.6 mg/dL (0.2-1.0); Protein, Total 8.5 g/dL (6.4-8.2)
[2018-07-19] MEDS ORDERED: ACETAMINOPHEN 500 MG TAB PO PRN (23:19)
[2018-07-19] MEDS ORDERED: CEFTRIAXONE/SWI 1gm 1 GM/10 ML SYR ONE (23:23)
[2018-07-19] MEDS ORDERED: PROMETHAZINE 25 MG/ML VIAL ONE (23:30)
[2018-07-19] MEDS: NA CHLORIDE 0.9% 1,000 ML IV SCH (23:45)
[2018-07-19] MEDS ORDERED: Levofloxacin500mg IV 500 MG/100 ML BAG IV SCH (23:45)
[2018-07-20] MEDS ORDERED: METRONIDAZOLE 500mg IVPB 500 MG/100 ML BAG IV SCH (01:00)
[2018-07-20 01:10] LABS: Urine Blood NEGATIVE (NEG); Urine Glucose NEGATIVE (NEG); Urine Protein 1+ (NEG)
[2018-07-20] MEDS: ONDANSETRON 4 MG/2 ML VIAL IV PRN ×2 (01:52→20:02)
[2018-07-20] MEDS: MORPHINE 2 MG/ML SYR IV PRN ×3 (01:52→13:37)
[2018-07-20 04:04] LABS: Absolute Lymphocytes (CBC) 1.6 K/uL (0.7-4.9); Absolute Monocytes 0.3 K/uL (0.1-1.3); Absolute Neutrophil 10.6 K/uL (1.8-8.0); Basophils % 0.3 % (0-1.3); Eosinophils % 0.1 % (0-4.4); Hematocrit 39.3 % (36.0-45.0); Lymphocytes % 12.7 % (15.3-44.8); MPV 8.5 fL (7.6-11.3); Monocytes % 2.3 % (3.3-12.3); RBC Red Blood Cell Count 4.49 M/uL (3.86-4.86)
[2018-07-20 04:08] LABS: Protime INR 1.28
[2018-07-20 04:38] LABS: ALT/SGPT 19 U/L (12-78); AST/SGOT 8 U/L (15-37); Albumin 2.5 g/dL (3.4-5.0); Alkaline Phosphatase 81 U/L (45-117); BUN Blood Urea Nitrogen 11 mg/dL (7-18); Bicarbonate 26 mmol/L (21-32); Bilirubin Total 0.3 mg/dL (0.2-1.0); Glucose Level 117 mg/dL (74-106); Potassium 4.5 mmol/L (3.5-5.1); Protein, Total 6.2 g/dL (6.4-8.2); Sodium Level 142 mmol/L (136-145)
--- NOTE | 2018-07-20 08:52 | P.HP ---
Certification for Inpatient Patient admitted to: Inpatient With expected LOS: >2 Midnights Patient will require the following post-hospital care: None Practitioner: I am a practitioner with admitting privileges, knowledge of patient current condition, hospital course, and medical plan of care. Services: Services provided to patient in accordance with Admission requirements found in Title 42 Section 412.3 of the Code of Federal Regulations Patient History Date of Service: 07/19/18 Reason for admission: Abdominal pain with acute diverticulitis History of Present Illness: Patient is a 42-year-old female came into the hospital with abdominal pain. Pain was in the left lower quadrant. There was no rebound or guarding. Patient has had workup done at her GI is office. She was found to have acute diverticulitis and sent to the ER. Patient is currently on antibiotics. Continue with pain control. Start clear liquid diet in the morning. She will need further outpatient studies. She had diverticulitis x3 this year. She will need colonoscopy done in the next 6-12 weeks. Allergies Sulfa (Sulfonamide Antibiotics) Adverse Reaction (Verified 07/20/18 01:14) Nausea/Vomiting Home Medications: Escitalopram Oxalate [Lexapro] 10 mg PO DAILY 07/20/18 Estradiol [Estrace] 1 mg PO DAILY 07/20/18 Lisinopril [Prinivil] 10 mg PO DAILY 07/20/18 Ondansetron [Zofran] 2 tab PO Q8H 07/20/18 Progesterone,Micronized [Prometrium] 200 mg PO DAILY 07/20/18 - Past Medical/Surgical History Has patient received pneumonia vaccine in the past: No Diabetic: No -: Diverticulitis -: HTN -: hysterectomy - Family History Father Family History: Reviewed- Non-Contributory - Social History Smoking Status: Never smoker Alcohol use: No CD- Drugs: No Caffeine use: No Place of Residence: Home Review of Systems 10-point ROS is otherwise unremarkable Physical Examination - Vital Signs Temperature: 98.3 F Blood Pressure: 121/65 Pulse: 66 Respirations: 18 Pulse Ox (%): 97 - Physical Exam General: Alert, In no apparent distress, Oriented x3 HEENT: Atraumatic, PERRLA, Mucous membr. moist/pink, EOMI, Sclerae nonicteric Neck: Supple, 2+ carotid pulse no bruit, No LAD, Without JVD or thyroid abnormality Respiratory: Clear to auscultation bilaterally, Normal air movement Cardiovascular: Regular rate/rhythm, Normal S1 S2, No murmurs Gastrointestinal: Normal bowel sounds, Soft and benign, Non-distended, No rebound, No guarding, Tenderness Musculoskeletal: No clubbing, No swelling, No tenderness Integumentary: No rashes Neurological: Normal gait, Normal speech, Normal strength at 5/5 x4 extr, Normal tone, Sensation intact, Cranial nerves 3-12 intact, Normal affect Lymphatics: No axilla or inguinal lymphadenopathy - Studies Laboratory Data (last 24 hrs) 07/19/18 21:45: Creatinine 0.90 07/19/18 21:45: WBC 18.6 H D, Hgb 15.9 H, Hct 46.3 H D, Plt Count 444 H D 07/19/18 21:45: Sodium 138, Potassium 4.0, BUN 11, Creatinine 0.90, Glucose 106 , Total Bilirubin 0.6, AST 14 L, ALT 24, Alkaline Phosphatase 111, Lipase 103 Assessment & Plan - Problems (Diagnosis) (1) Acute diverticulitis Current Visit: Yes Status: Acute - Plan 1. Continue with IV hydration 2. Continue with IV antibiotics 3. Continue with pain control 4. NPO 5. GI consultation(Dr. Carrillo); outpatient colonoscopy in 6-12 weeks 6. Serial H&H, and we will monitor CBC, BMP, LFTs and lipase along with electrolytes. 7. GI and DVT prophylaxis Discharge Plan: Home Plan to discharge in: Greater than 2 days - Advance Directives Does patient have a Living Will: No Does patient have a Durable POA for Healthcare: No - Code Status/Comfort Care Code Status Assessed: Yes Code Status: Full Code Critical Care: No Time Spent Managing PTS Care (In Minutes): 50
[2018-07-20] MEDS: METRONIDAZOLE 500mg IVPB 500 MG/100 ML BAG IV SCH ×2 (09:05→16:44)
[2018-07-20] MEDS: NA CHLORIDE 0.9% 1,000 ML IV SCH ×3 (09:45→22:03)
--- NOTE | 2018-07-20 16:16 | P.PN ---
Subjective Date of Service: 07/20/18 Chief Complaint: Abdominal pain with acute diverticulitis Subjective: Ambulating, Improving, Doing well Review of Systems 10-point ROS is otherwise unremarkable Physical Examination - Vital Signs Temperature: 98.0 F Blood Pressure: 125/69 Pulse: 70 Respirations: 18 Pulse Ox (%): 98 - Physical Exam General: Alert, In no apparent distress HEENT: Atraumatic, PERRLA, EOMI Neck: Supple, JVD not distended Respiratory: Clear to auscultation bilaterally, Normal air movement Cardiovascular: Regular rate/rhythm, Normal S1 S2 Gastrointestinal: Normal bowel sounds, Tenderness Musculoskeletal: No tenderness Integumentary: No rashes Neurological: Normal speech, Normal tone, Normal affect Lymphatics: No axilla or inguinal lymphadenopathy - Studies Laboratory Data (last 24 hrs) 07/19/18 21:45: Creatinine 0.90 07/19/18 21:45: WBC 18.6 H D, Hgb 15.9 H, Hct 46.3 H D, Plt Count 444 H D 07/19/18 21:45: Sodium 138, Potassium 4.0, BUN 11, Creatinine 0.90, Glucose 106 , Total Bilirubin 0.6, AST 14 L, ALT 24, Alkaline Phosphatase 111, Lipase 103 Medications List Reviewed: Yes Assessment And Plan - Current Problems (Diagnosis) (1) Acute diverticulitis Onset Date: 07/20/18 Current Visit: Yes Status: Acute Plan: Acute Diverticulitis with h/o Diverticulosis -IV cipro and Flagyl -IV fluids and continue on NPO due to continued Tenderness -Will advance diet slowly once abd pain resolves Discharge Plan: Home Plan to discharge in: 48 Hours - Code Status/Comfort Care Code Status Assessed: Yes Critical Care: No
[2018-07-20] MEDS: TRAMADOL HCL 50 MG TAB PO PRN (19:58)
[2018-07-20] MEDS ORDERED: Levofloxacin500mg IV 500 MG/100 ML BAG IV SCH (21:00)
[2018-07-20] MEDS ORDERED: levoFLOXacin 500 MG TAB PO SCH (21:00)
[2018-07-20] MEDS: metroNIDAZOLE 500 MG TABLET PO SCH (22:01)
[2018-07-21] MEDS: TRAMADOL HCL 50 MG TAB PO PRN ×2 (03:33→09:13)
[2018-07-21] MEDS: NA CHLORIDE 0.9% 1,000 ML IV SCH ×2 (05:45→09:14)
[2018-07-21] MEDS ORDERED: LISINOPRIL 10 MG TAB PO SCH (09:00)
[2018-07-21] MEDS: metroNIDAZOLE 500 MG TABLET PO SCH (09:07)
--- OUTSIDE RECORDS SUMMARY | 2018-07-21 16:41 | XMS REPORT | Clinical Summary ---
:1975 Author Organization [facility] Address [address] [place] [address] Care Team Providers Name Role Phone Milton English MD Primary Care Provider Allergies Active Allergy Reactions Severity Noted Date Comments Sulfur 03/09/2018 Medications Medication Sig Dispensed Refills Start Date End Date Status escitalopram Take 10 mg 0 Active (LEXAPRO) 10 MG by mouth tablet daily. lisinopril Take 10 mg 0 Active (PRINIVIL,ZESTRIL) by mouth 10 mg tablet daily. estradiol (ESTRACE) Take 1 mg by 0 Active 1 MG tablet mouth daily. progesterone Take 200 mg 0 Active (PROMETRIUM) 200 MG by mouth capsule daily. rOPINIRole (REQUIP) Take 2 mg by 0 Active 2 MG tablet mouth nightly. pramipexole Take 1 90 tablet 3 05/23/2018 05/23/2019 Active (MIRAPEX) 0.5 MG tablet (0.5 tablet mg total) by mouth daily. gabapentin 1 tab PO TID 270 capsule 3 05/23/2018 Active (NEURONTIN) 100 mg capsule pramipexole Take 1 30 tablet 1 03/13/2018 04/27/2018 Discontinued (MIRAPEX) 0.5 MG tablet (0.5 tablet mg total) by mouth daily. GABAPENTIN ORAL Take by 0 04/27/2018 Discontinued mouth. gabapentin 1 tab PO QD 90 capsule 5 04/27/2018 05/23/2018 Discontinued (NEURONTIN) 100 mg x3 days, 1 capsule tab PO BID x3 days, then 1 tab PO TID pramipexole TAKE 1 30 tablet 1 05/08/2018 05/23/2018 Discontinued (MIRAPEX) 0.5 MG TABLET (0.5 tablet MG TOTAL) BY MOUTH DAILY. Active Problems Problem Noted Date Pain in both lower extremities 03/09/2018 Other headache syndrome 03/09/2018 Restless legs syndrome (RLS) 03/09/2018 Myalgia 03/09/2018 Tremor 03/09/2018 Memory loss 03/09/2018 Encounters Date Type Specialty Care Team Description 05/23/2018 Orders Only Neurology Pippa Pearles MA 05/08/2018 Refill Neurology Alexei Rubin MD 04/27/2018 Office Visit Neurology Alexei Rubin MD Pain in both lower extremities (Primary Dx); Other headache syndrome; Restless legs syndrome (RLS); Myalgia; Memory loss; Tremor; Essential tremor 03/23/2018 Hospital Encounter Radiology Alexei Rubin MD Pain in both lower extremities; Restless legs syndrome (RLS); Myalgia; Memory loss; Chronic bilateral low back pain, with sciatica presence unspecified 03/23/2018 Hospital Encounter Radiology Alexei Rubin MD Other headache syndrome; Memory loss; Tremor 03/16/2018 Telephone Neurology Srutih Castillo MA 03/13/2018 Telephone Neurology Sruthi Castillo MA 03/09/2018 Office Visit Neurology Alexei Rubin MD Pain in both lower extremities (Primary Dx); Other headache syndrome; Restless legs syndrome (RLS); Myalgia; Memory loss; Tremor; Chronic bilateral low back pain, with sciatica presence unspecified after 07/18/2017 Family History Medical History Relation Name Comments Dementia Maternal Grandmother Diabetes Mother Relation Name Status Comments Maternal Grandmother Mother Social History Tobacco Use Types Packs/Day Years Used Date Never Smoker Smokeless Tobacco: Never Used Alcohol Use Drinks/Week oz/Week Comments Yes 3 Standard drinks or equivalent 1.8 Sex Assigned at Date Recorded Not on file Job Start Date Occupation Industry Not on file Not on file Not on file Travel History Travel Start Travel End No recent travel history available. Last Filed Vital Signs Vital Sign Reading Time Taken Blood Pressure 140/80 04/27/2018 3:45 PM CDT Pulse 85 04/27/2018 3:45 PM CDT Temperature - - Respiratory Rate - - Oxygen Saturation - - Inhaled Oxygen Concentration - - Weight 72.1 kg (159 lb) 04/27/2018 3:45 PM CDT Height 160 cm (5' 3") 04/27/2018 3:45 PM CDT Body Mass Index 28.17 04/27/2018 3:45 PM CDT Plan of Treatment Date Type Specialty Care Team Description 08/07/2018 [place] [address] [facility] [address] [place], [place] [address] Health Maintenance Due Date Last Done Comments CERVICAL CANCER SCREENING 1994 INFLUENZA VACCINE 03/01/2018 Procedures Procedure Name Priority Date/Time Associated Comments Diagnosis MRI BRAIN W WO Routine 03/23/2018 11:37 Other headache Results for this CONTRAST AM CDT syndrome procedure are in Memory loss the results Tremor section. MRI LUMBAR SPINE WO Routine 03/23/2018 11:18 Pain in both lower Results for this CONTRAST AM CDT extremities procedure are in Restless legs the results syndrome (RLS) section. Myalgia Memory loss Chronic bilateral low back pain, with sciatica presence unspecified ZZESTIMATED GFR STAT 03/23/2018 10:25 Results for this AM CDT procedure are in the results section. CREATININE, WHOLE STAT 03/23/2018 10:25 Results for this BLOOD AM CDT procedure are in the results section. B. BURGDORFERI BY PCR Routine 03/09/2018 3:36 Pain in both lower Results for this (LYME DISEASE) PM CDT extremities procedure are in Other headache the results syndrome section. Restless legs syndrome (RLS) Myalgia Memory loss Tremor TREPONEMA PALLIDUM AB Routine 03/09/2018 3:36 Pain in both lower Results for this PM CDT extremities procedure are in Other headache the results syndrome section. Restless legs syndrome (RLS) Myalgia Memory loss Tremor TOTAL IRON BINDING Routine 03/09/2018 3:36 Pain in both lower Results for this CAPACITY PM CDT extremities procedure are in Other headache the results syndrome section. Restless legs syndrome (RLS) Myalgia Memory loss Tremor FERRITIN LEVEL Routine 03/09/2018 3:36 Pain in both lower Results for this PM CDT extremities procedure are in Other headache the results syndrome section. Restless legs syndrome (RLS) Myalgia Memory loss Tremor CREATINE KINASE, TOTAL Routine 03/09/2018 3:36 Pain in both lower Results for this (CPK) PM CDT extremities procedure are in Other headache the results syndrome section. Restless legs syndrome (RLS) Myalgia Memory loss Tremor COPPER LEVEL, SERUM Routine 03/09/2018 3:36 Pain in both lower Results for this PM CDT extremities procedure are in Other headache the results syndrome section. Restless legs syndrome (RLS) Myalgia Memory loss Tremor CERULOPLASMIN LEVEL Routine 03/09/2018 3:36 Pain in both lower Results for this PM CDT extremities procedure are in Other headache the results syndrome section. Restless legs syndrome (RLS) Myalgia Memory loss Tremor ANGIOTENSIN CONVERTING Routine 03/09/2018 3:36 Pain in both lower Results for this ENZYME PM CDT extremities procedure are in Other headache the results syndrome section. Restless legs syndrome (RLS) Myalgia Memory loss Tremor AMMONIA LEVEL Routine 03/09/2018 3:36 Pain in both lower Results for this PM CDT extremities procedure are in Other headache the results syndrome section. Restless legs syndrome (RLS) Myalgia Memory loss Tremor FOLATE LEVEL Routine 03/09/2018 3:36 Pain in both lower Results for this PM CDT extremities procedure are in Other headache the results syndrome section. Restless legs syndrome (RLS) Myalgia Memory loss Tremor VITAMIN B12 LEVEL Routine 03/09/2018 3:36 Pain in both lower Results for this PM CDT extremities procedure are in Other headache the results syndrome section. Restless legs syndrome (RLS) Myalgia Memory loss Tremor THYROID STIMULATING Routine 03/09/2018 3:36 Pain in both lower Results for this HORMONE PM CDT extremities procedure are in Other headache the results syndrome section. Restless legs syndrome (RLS) Myalgia Memory loss Tremor T4, FREE Routine 03/09/2018 3:36 Pain in both lower Results for this PM CDT extremities procedure are in Other headache the results syndrome section. Restless legs syndrome (RLS) Myalgia Memory loss Tremor T3 Routine 03/09/2018 3:36 Pain in both lower Results for this PM CDT extremities procedure are in Other headache the results syndrome section. Restless legs syndrome (RLS) Myalgia Memory loss Tremor after 07/18/2017 Results MRI Brain W Wo Contrast (03/23/2018 11:37 AM CDT) Narrative Performed At EXAMINATION: MRI BRAIN W WO CONTRAST [facility] CLINICAL HISTORY: G44.89 Other headache syndrome, R41.3 Other amnesia, Painmemory lossheadachesevaluate for demyelinating lesions COMPARISON:None TECHNIQUE: Multiplanar and multisequence MRI imaging of the brain was obtained with and without contrast. FINDINGS: There is no evidence of acute infarct, intracranial hemorrhage or mass, hydrocephalus or midline shift. There are no areas of abnormal enhancement in the brain or extra axial region. The orbits, sinuses and mastoid air cells are unremarkable. The nasal septum deviates towards the left. IMPRESSION: No acute findings in the brain or extra-axial region. [facility]-[id number] Procedure Note Hm Interface, Radiology Results Incoming - 03/23/2018 11:45 AM CDT EXAMINATION: MRI BRAIN W WO CONTRAST CLINICAL HISTORY: G44.89 Other headache syndrome, R41.3 Other amnesia, Pain memory loss headaches evaluate for demyelinating lesions COMPARISON: None TECHNIQUE: Multiplanar and multisequence MRI imaging of the brain was obtained with and without contrast. FINDINGS: There is no evidence of acute infarct, intracranial hemorrhage or mass, hydrocephalus or midline shift. There are no areas of abnormal enhancement in the brain or extra axial region. The orbits, sinuses and mastoid air cells are unremarkable. The nasal septum deviates towards the left. IMPRESSION: No acute findings in the brain or extra-axial region. [facility]-[id number] Performing Organization Address City/State/Zipcode Phone Number [facility] [address] [place] [address] MRI Lumbar Spine Wo Contrast (03/23/2018 11:18 AM CDT) Narrative Performed At [facility] EXAM:MRI LUMBAR SPINE WO CONTRAST COMPARISON: None. CLINICAL HISTORY: M79.604 Pain in right leg, M79.605 Pain in left leg, Leg painback pain TECHNIQUE: Multiplanar multisequence examination was performedWithout contrast. FINDINGS: Sagittal images demonstrate slight exaggeration of the lumbar lordosis. There is no evidence of compression fracture. The disc space height is maintained. Graft axial images demonstrate the following: L5-S1: There are mild facet joint degenerative changes. L4-5: There are mild facet joint degenerative changes and ligament flavum thickening. There is no focal disc protrusion. L3-4: There are mild facet joint degenerative changes. L2-3: There are no significant abnormalities. L1-2: There are no significant abnormalities. IMPRESSION: Mild facet joint degenerative changes at L3-4 through L5-S1. No focal disc protrusion or spinal stenosis. [id number] Procedure Note Interface, Radiology Results Incoming - 03/23/2018 11:24 AM CDT EXAM: MRI LUMBAR SPINE WO CONTRAST COMPARISON: None. CLINICAL HISTORY: M79.604 Pain in right leg, M79.605 Pain in left leg, Leg pain back pain TECHNIQUE: Multiplanar multisequence examination was performed Without contrast. FINDINGS: Sagittal images demonstrate slight exaggeration of the lumbar lordosis. There is no evidence of compression fracture. The disc space height is maintained. Graft axial images demonstrate the following: L5-S1: There are mild facet joint degenerative changes. L4-5: There are mild facet joint degenerative changes and ligament flavum thickening. There is no focal disc protrusion. L3-4: There are mild facet joint degenerative changes. L2-3: There are no significant abnormalities. L1-2: There are no significant abnormalities. IMPRESSION: Mild facet joint degenerative changes at L3-4 through L5-S1. No focal disc protrusion or spinal stenosis. [id number] Performing Organization Address City/[facility]/Zipcode Phone Number [facility] [address] [place] [address] Creatinine, whole blood (03/23/2018 10:25 AM CDT) Creatinine, whole blood 0.7 0.5 - 1.5 mg/dL [facility] DEPARTMENT OF PATHOLOGY AND GENOMIC MEDICINE Specimen Plasma specimen Performing Organization Address [facility]/Zipcode Phone Number [facility] DEPARTMENT OF PATHOLOGY [address] [place] [address] AND [employer] [facility] Estimated GFR (03/23/2018 10:25 AM CDT) GFR Non Af Amer >90 mL/min/1.73 m2 [facility] DEPARTMENT OF PATHOLOGY AND GENOMIC MEDICINE GFR Af Amer >90 mL/min/1.73 m2 [facility] DEPARTMENT OF Comment: PATHOLOGY AND GENOMIC Chronic kidney disease: <60 mL/min/1.73m2 MEDICINE Kidney failure: <15 mL/min/1.73m2 The estimated GFR is calculated from the IDMS-traceable Modification of Diet in Renal Disease Equation. The accuracy of the calculation is poor when the creatinine is normal. Calculated values >90 mL/min/1.73m2 are not reported. This equation has not been validated in children (<18 years), women, the elderly (>70 years), or ethnic groups other than Caucasians and Americans. Specimen Plasma specimen Performing Organization Address City/State/Zipcode Phone Number [facility] DEPARTMENT OF PATHOLOGY [address] [place] [address] AND [facility] Total iron binding capacity (03/09/2018 3:36 PM CDT) Iron level 50 37 - 145 ug/dL [facility] DEPARTMENT OF PATHOLOGY AND [facility] Iron binding capacity 405 260 - 460 ug/dL [facility] OF PATHOLOGY AND GENOMIC MEDICINE % Saturation 12.3 (L) 15.0 - 38.0 % [facility] OF PATHOLOGY AND [facility] Specimen Plasma specimen Performing Organization Address [facility] Phone Number [facility] OF [facility] [id number] [place] [address] AND [facility] Copper level, serum (03/09/2018 3:36 PM CDT) Copper 188 (H) 80 - 155 ug/dL [email or web address] Comment: If uncertainty exists regarding the type of blood tube used to collect this specimen, testing should be repeated with a second specimen collected in a certified metal-free tube. Elevated results determined with specimens collected in noncertified metal-free blood tubes may reflect contamination of the tube itself. INTERPRETIVE INFORMATION: Copper, Serum or Plasma Serum copper may be elevated with infection, inflammation, stress, and copper supplementation. In females, elevated copper may also be caused by oral contraceptives and (concentrations may be elevated up to 3 times normal during the third trimester). Serum copper may be reduced by use of corticosteroids and zinc and by malnutrition or malabsorption. See Compliance Statement B at [email or web address] Performed by [facility], [address] [place] [address] [email or web address], René Maxwell MD - Lab. Director Specimen Blood Performing Organization Address City/[facility]/Zipcode Phone Number [email or web address] [address] [place] [address] Ceruloplasmin level (03/09/2018 3:36 PM CDT) Ceruloplasmin 45 16 - 45 mg/dL [facility] DEPARTMENT OF PATHOLOGY AND GENOMIC MEDICINE Specimen Plasma specimen Performing Organization Address City/[facility]/Zipcode Phone Number [facility] DEPARTMENT OF PATHOLOGY AND [address] [place], [place] [phone] [facility] Treponema pallidum Ab (03/09/2018 3:36 PM CDT) Syphilis treponemal Ab Non Reactive Non-Reactive [facility] Comment: Performed by [facility] [employer], [address] [place] [id number] [email or web address], René Maxwell MD - Lab. Director Specimen Serum Performing Organization Address [facility] Number [facility] [address] [place] [address] B. burgdorferi by PCR (Lyme disease) (03/09/2018 3:36 PM CDT) B. burgdorferi PCR Not Detected [facility] Comment: NOT DETECTED - A negative result does not rule out the presence of PCR inhibitors in the patient specimen or assay specific nucleic acid in concentrations below the level of detection by the assay. INTERPRETIVE INFORMATION: Borrelia Species DNA Detection by PCR Test developed and characteristics determined by [facility] [employer]. See Compliance Statement B: [employer]/CS Performed by [facility] [employer], [address] [place] [address] [email or web address], René Maxwell MD - Lab. Director Specimen Blood Performing Organization [facility] Number [facility] [address] [place] [address] Angiotensin converting enzyme (03/09/2018 3:36 PM CDT) Angiotensin converting enzyme 10 9 - 67 U/L [facility] Comment: Performed by [facility] [employer], [address] [place] [id number] [email or web address], René Maxwell MD - Lab. Director Specimen Serum Performing Organization Address [facility] Phone Number [facility] [address] [place] [address] T3 (03/09/2018 3:36 PM CDT) T3 111 80 - 200 ng/dL [facility] DEPARTMENT OF PATHOLOGY AND GENOMIC [facility] Specimen Plasma specimen Performing Organization Address [facility] Phone Number [facility] DEPARTMENT OF PATHOLOGY AND [address] [place] [phone] [facility] Thyroid stimulating hormone (03/09/2018 3:36 PM CDT) TSH 1.17 0.27 - 4.20 uIU/mL [facility] DEPARTMENT OF PATHOLOGY AND GENOMIC MEDICINE Specimen Plasma specimen Performing Organization Address City/[facility] Phone Number [facility] DEPARTMENT OF PATHOLOGY [address] [place] [address]. [place] [address] AND [facility] T4, free (03/09/2018 3:36 PM CDT) T4, free 1.1 0.9 - 1.7 ng/dL [facility] DEPARTMENT OF PATHOLOGY AND GENOMIC MEDICINE Specimen Plasma specimen Performing Organization Address City/[facility] Phone Number [facility] DEPARTMENT OF PATHOLOGY [address] [place] [address]. [place] [address] AND [facility] Folate level (03/09/2018 3:36 PM CDT) Folate 11.2 4.8 - 24.2 ng/mL [facility] DEPARTMENT OF PATHOLOGY AND GENOMIC MEDICINE Specimen Serum Performing Organization Address [facility] Phone Number [facility] DEPARTMENT OF PATHOLOGY AND [address] [place] [address] Ferritin level (03/09/2018 3:36 PM CDT) Ferritin level 106 13 - 150 ng/mL [facility] DEPARTMENT OF PATHOLOGY AND GENOMIC MEDICINE Specimen Plasma specimen Performing Organization Address [facility] Phone Number [facility] DEPARTMENT OF PATHOLOGY AND [address] [place] [address] Vitamin B12 level (03/09/2018 3:36 PM CDT) Vitamin B12 429 211 - 946 pg/mL [facility] DEPARTMENT OF PATHOLOGY Comment: AND [facility] MEDICINE Significant overlap exists between normal and deficiency states. However, most patients with deficiencies will have Serum B12 <200 pg/mL. Specimen Serum Performing Organization Address City/[facility] Phone Number [facility] DEPARTMENT OF PATHOLOGY AND [address] [place] [address] Creatine kinase, total (CPK) (03/09/2018 3:36 PM CDT) Creatine kinase 47 26 - 192 U/L [facility] DEPARTMENT OF PATHOLOGY AND GENOMIC MEDICINE Specimen Plasma specimen Performing Organization Address City/[facility] Phone Number [facility] DEPARTMENT OF PATHOLOGY [address] [place] [address]. [place] [address] AND [facility] Ammonia level (03/09/2018 3:36 PM CDT) Ammonia 19 11 - 51 umol/L [facility] DEPARTMENT OF PATHOLOGY AND GENOMIC MEDICINE Specimen Plasma specimen Performing Organization Address City/State/Zipcode Phone Number [facility] DEPARTMENT OF PATHOLOGY [address] [place] [address] AND GENOMIC MEDICINE after 07/18/2017 Insurance Payer Benefit Plan / Group Subscriber ID Type Phone Address BCBS BCBS CHOICE PPO/[employer] PPO xxxxxxxxxxxxxxx PPO Advance Directives Patient has advance care planning documents on file. For more information, please contact:Hilton [id number] [facility] [place] [address]
--- OUTSIDE RECORDS SUMMARY | 2018-07-21 16:42 | XMS REPORT | Continuity of Care Document ---
:1975 Author Organization Interface Problems Problem Status Onset Classification Date Comments Source Date Reported 1ST:BRYANT/FIB Active [place] ROIDS-D25.9 / 6 [place] ENDOMETRIOSIS-N8 0.0 / 2ND:HATTIE Rectocele Active Problem 04/27/2016 [place] Hypertension Active Problem 04/27/2016 [place] Menorrhagia Active Problem 04/27/2016 [place] Uterine fibroid Active Problem 04/27/2016 [place] Medications Medication Details Route Status Patient Ordering Order Source Instructions Provider Date Ondansetron 4 MG 4 mg, PO, ONCE, # Active Oral Tablet 30 caplet, 0 2015 [place] [Zofran] Refill(s) [place] Zofran 4 mg, 1 tab, Inactive Route: PO, Drug 2015 [place] form: TAB, ONCE, [place] Dosing Weight 69.455, kg, Start date: 04/24/16 10:10:00 CDT, Stop date: 04/24/16 10:10:00 CDTNotes: (Same as: Zofran) Lisinopril 10 mg, Route: PO, No Longer Drug form: TAB, Active 2015 [place] Daily, Dosing [place] Weight 69.455, kg, Start date: 04/23/16 9:00:00 CDT, Duration: 30 day, Stop date: 05/22/16 9:00:00 CDT Simethicone 160 mg, 2 tab, No Longer Route: CHEW, Drug Active 2015 [place] form: CHEWTAB, [place] TID, Dosing Weight 69.455, kg, PRN Gas, Start date: 04/23/16 8:59:00 CDT, Duration: 30 day, Stop date: 05/23/16 8:58:00 CDTNotes: (Same as: Mylicon) Dilaudid 4 mg, 2 mL, Route: No Longer PO, Drug form: Active 2015 [place] INJ, Q3H, Dosing [place] Weight 69.455, kg, PRN Pain Score 7-10, Start date: 04/23/16 8:58:00 CDT, Duration: 30 day, Stop date: 05/23/16 8:57:00 CDTNotes: (Same as: Dilaudid) Dilaudid 1 mg, 0.5 mL, No Longer Route: IVP, Drug Active 2015 [place] form: INJ, Q3H, [place] Dosing Weight 69.455, kg, PRN Pain Score 4-6, Start date: 04/23/16 8:57:00 CDT, Duration: 30 day, Stop date: 05/23/16 8:56:00 CDTNotes: (Same as: Dilaudid) Enoxaparin 40 mg, 0.4 mL, No Longer Route: SUB-Q, Drug Active 2015 [place] form: INJ, Daily, [place] Dosing Weight 69.455, kg, Start date: 04/23/16 8:00:00 CDT, Duration: 30 day, Stop date: 05/22/16 8:00:00 CDTNotes: (Same as: Lovenox) Motrin 600 mg, 1 tab, No Longer Route: PO, Drug Active 2015 [place] form: TAB, Q6H, [place] Dosing Weight 69.455, kg, PRN Pain Score 1-3, Start date: 04/23/16 7:07:00 CDT, Duration: 30 day, Stop date: 05/23/16 7:06:00 CDTNotes: (Same as: Motrin) "Do Not Crush" Take with food. Alprazolam 0.5 MG 0.5 mg, 1 tab, No Longer Oral Tablet Route: PO, Drug Active 2015 [place] [Xanax] form: TAB, TID, [place] Dosing Weight 69.455, kg, PRN Anxiety, Priority: NOW, Start date: 04/23/16 2:28:00 CDT, Duration: 30 day, Stop date: 05/23/16 2:27:00 CDTNotes: With food or milk (Same as: Xanax) Acetaminophen 500 500 mg=1 tab, PO, No Longer MG Oral Tablet Q4H, PRN Pain Active 2015 [place] [Tylenol] [place] ibuprofen 200 mg 400 mg=2 tab, PO, No Longer oral tablet Q4H, PRN Pain Active 2015 [place] Docusate 100 mg, 1 cap, No Longer Route: PO, Drug Active 2015 [place] form: CAP, BID, [place] Dosing Weight 69.455, kg, Start date: 04/22/16 17:00:00 CDT, Duration: 30 day, Stop date: 05/22/16 9:00:00 CDTNotes: (Same as: Colace) (Do Not Crush) Ativan 1 mg, Route: IVP, Inactive Drug form: INJ, 2015 [place] ONCE, Dosing [place] Weight 69.455, kg, PRN Anxiety, Start date: 04/22/16 13:05:00 CDT Hydromorphone 15 mg, 30 mL, Inactive Route: IV, Initial 2015 [place] Loading Dose: 0.2 [place] mg, STRIPPING SHOVEL OILER Dose: 0.1mg, STRIPPING SHOVEL OILER Lockout: 10 minutes, Continuous Basal Rate: 0.1 mg, 4 Hour Limit (In MG): 3, Continuous, Start date: 04/22/16 12:30:00 CDT, Duration: 30 day, Stop date: 05/22/16 12:29:00 CDT Naloxone 0.04 mg, 0.1 mL, No Longer Route: IVP, Drug Active 2015 [place] form: INJ, Q2MIN, [place] Dosing Weight 69.455, kg, PRN Narcotic Reversal, Start date: 04/22/16 12:30:00 CDT, Duration: 30 day, Stop date: 05/22/16 12:29:00 CDTNotes: Same as Narcan neostigmine Route: IV, Drug Inactive (ANES) form: INJ, ONCE, 2015 [place] Stop date: [facility] 04/22/16 12:21:00 CDT morphine Sulfate Route: IV, Drug Inactive (ANES) form: INJ, ONCE, 2015 [place] Stop date: [facility] 04/22/16 12:21:00 CDT glycopyrrolate Route: IV, Drug Inactive (ANES) form: INJ, ONCE, 2015 [place] Stop date: [facility] 04/22/16 12:21:00 CDT ketOROLAC (ANES) IV, ONCE Inactive 2015 [place] ondansetron Route: IV, Drug Inactive (ANES) form: INJ, ONCE, 2016 [place] Stop date: [place] 04/22/16 12:21:00 CDT Tramadol 100 mg, Route: PO, Inactive Drug form: TAB, 2016 [place] Q6H, Dosing Weight [place] 69.455, kg, PRN Pain Score 1-5, Start date: 04/22/16 12:17:00 CDT, Duration: 30 day, Stop date: 05/22/16 12:16:00 CDT Oxycodone 5 mg, 1 tab, No Longer Hydrochloride 5 Route: PO, Drug Active 2015 [place] MG Oral Tablet form: TAB, Q4H, [place] Dosing Weight 69.455, kg, PRN Pain Score 4-6, Start date: 04/22/16 12:17:00 CDT, Duration: 30 day, Stop date: 05/22/16 12:16:00 CDTNotes: (Same as: Roxicodone) Al hydroxide/Mg 30 mL, Route: PO, No Longer hydroxide/simethi Drug Form: SUSP, Active 2015 [place] cone 200 mg-200 Dosing Weight [place] mg-20 mg/5 mL 69.455, kg, Q4H, oral suspension PRN Indigestion, Start date: 04/22/16 12:17:00 CDT, Duration: 30 day, Stop date: 05/22/16 12:16:00 CDTNotes: (aluminum hydroxide-magnesiu m hyd-simethicone [id number]/5ml 30 ml ud RONALDO) Ondansetron 4 mg, 2 mL, Route: No Longer IVP, Drug form: Active 2015 [place] INJ, Q8H, Dosing [place] Weight 69.455, kg, PRN Nausea & Vomiting, Start date: 04/22/16 12:17:00 CDT, Duration: 30 day, Stop date: 05/22/16 12:16:00 CDTNotes: (Same as: Aissatou) MEDICATION WASTE Product Size: 4 mg Product Wasted: ___ mg Morphine 2 mg, 1 mL, Route: No Longer IVP, Drug form: Active 2015 [place] INJ, Q4H, Dosing [place] Weight 69.455, kg, PRN Pain Score 7-10, Start date: 04/22/16 12:17:00 CDT, Duration: 30 day, Stop date: 05/22/16 12:16:00 CDTNotes: (Same as:MORPhine Sulfate) Naloxone 0.04 mg, 0.1 mL, No Longer Route: IVP, Drug Active 2015 [place] form: INJ, Q2MIN, [place] Dosing Weight 69.455, kg, PRN Narcotic Reversal, Start date: 04/22/16 12:17:00 CDT, Duration: 30 day, Stop date: 05/22/16 12:16:00 CDTNotes: Same as Narcan Zofran 4 mg, 2 mL, Route: No Longer IVP, Drug form: Active 2015 [place] INJ, Q8H, Dosing [place] Weight 69.455, kg, PRN Nausea, Start date: 04/22/16 12:17:00 CDT, Duration: 30 day, Stop date: 05/22/16 12:16:00 CDTNotes: (Same as: Zofran) MEDICATION WASTE Product Size: 4 mg Product Wasted: ___ mg tramadol 100 mg, 2 tab, No Longer hydrochloride 50 Route: PO, Drug Active 2015 [place] MG Oral Tablet form: TAB, Q6H, [place] Dosing Weight 69.455, kg, PRN Pain Score 4-6, Start date: 04/22/16 12:17:00 CDT, Duration: 30 day, Stop date: 05/22/16 12:16:00 CDTNotes: Not to exceed 400mg/day. (Same As: Ultram) Phenergan 12.5 mg, 0.5 mL, No Longer Route: IM, Drug Active 2015 [place] form: INJ, Q4H, [place] Dosing Weight 69.455, kg, PRN Nausea & Vomiting, Start date: 04/22/16 12:17:00 CDT, Duration: 30 day, Stop date: 05/22/16 12:16:00 CDTNotes: Do not give IV push. (Same as: Phenergan) ketOROLAC 15 15 mg, 0.5 mL, No Longer mg/mL injectable Route: IVP, Drug Active 2015 [place] solution form: INJ, Q6H, [place] Dosing Weight 69.455, kg, PRN Pain Score 4-6, Start date: 04/22/16 12:17:00 CDT, Duration: 4 day, Stop date: 04/26/16 12:16:00 CDTNotes: (Same as:Toradol) IV bolus must be given >15 seconds. Give IM administration slowly and deeply into the muscle. Not for use > 4 days MEDICATION WASTE Product Size: 30 mg Product Wasted: _15__ mg Acetaminophen 325 2 tab, Route: PO, No Longer MG / Hydrocodone Drug Form: TAB, Active 2015 [place] Bitartrate 5 MG Dosing Weight [place] Oral Tablet 69.455, kg, Q6H, [[place] 5/325] PRN Pain Score 4-6, Start date: 04/22/16 12:17:00 CDT, Duration: 30 day, Stop date: 05/22/16 12:16:00 CDTNotes: (Same as: [place] 325/5) Do not exceed 4gm/day of acetaminophen. Calcium Chloride 1,000 mL, Rate: No Longer 0.0014 MEQ/ML / 125 ml/hr, Infuse Active 2015 [place] Potassium over: 8 hr, Route: [place] Chloride 0.004 IV, Dosing Weight MEQ/ML / Sodium 69.455 kg, Total Chloride 0.103 Volume: 1,000, MEQ/ML / Sodium Start date: Lactate 0.028 04/22/16 12:17:00 MEQ/ML Injectable CDT, Duration: 30 Solution day, Stop date: 05/22/16 12:16:00 CDT Albuterol 0.833 3 mL, Route: NEB, Inactive MG/ML / Drug Form: SOLN, 2015 [place] Ipratropium Dosing Weight [place] 0.167 68.182, kg, MG/ML Inhalant Q20Min, PRN Solution [DuoNeb] Wheezing, call anesthesiologist if wheezing unresolved after 2nd dose., Start date: 04/22/16 12:12:00 CDT, Duration: 4 doses or times, Stop date: Limited # of timesNotes: (Same as: Duoneb) Phenylephrine Route: IV, Drug Inactive form: INJ, Q5Min, 2015 [place] Dosing Weight [place] 68.182, kg, PRN Hypotension, Start date: 04/22/16 12:12:00 CDT, Duration: 30 day, Stop date: 05/22/16 12:11:00 CDTNotes: Same as: [place]-Synephrine Levalbuterol 0.63 mg, 3 mL, Inactive Route: NEB, Drug 2015 [place] form: SOLN, [place] Q20Min, Dosing Weight 69.455, kg, PRN Wheezing, Start date: 04/22/16 12:12:00 CDT, Duration: 4 doses or times, Stop date: Limited # of timesNotes: SEE RT DOCUMENTATION (Same as:Xopenex) Non-Formulary Insulin, Aspart, 5 unit, 0.05 mL, Inactive Human Route: SUB-Q, Drug 2015 [place] form: SOLN, [place] Sliding Scale, Dosing Weight 69.455, kg, PRN Blood Glucose Results, Start date: 04/22/16 12:12:00 CDT, Duration: 30 day, Stop date: 05/22/16 12:11:00 CDTNotes: Roll in palms of hands gently; Do not shake vigorously. (Same as: NovoLOG) "single patient use only" WASTE: F/P - Black; E - Municipal Trash Bin Stable for 28 days at room temperature. Expires in days from Date Calcium Chloride 1,000 mL, Rate: Inactive 0.0014 MEQ/ML / 125 ml/hr, Infuse 2015 [place] Potassium over: 8 hr, Route: [place] Chloride 0.004 IV, Dosing Weight MEQ/ML / Sodium 69.455 kg, Total Chloride 0.103 Volume: 1,000, MEQ/ML / Sodium Start date: Lactate 0.028 04/22/16 12:12:00 MEQ/ML Injectable CDT, Duration: 30 Solution day, Stop date: 05/22/16 12:11:00 CDT Oxycodone 5 mg, 1 tab, Inactive Route: PO, Drug 2015 [place] form: TAB, ONCE, [place] Dosing Weight 68.182, kg, PRN Pain Score 4-6, Start date: 04/22/16 12:12:00 CDTNotes: (Same as: Roxicodone) Metoprolol 1 mg, 1 mL, Route: Inactive IVP, Drug form: 2016 [place] INJ, Q5Min, Dosing [place] Weight 68.182, kg, PRN Other -See Comment, Start date: 04/22/16 12:12:00 CDT, Duration: 5 doses or times, Stop date: Limited # of timesNotes: (Same as: Lopressor) Push over 2 minutes Acetaminophen 1,000 mg, 2 tab, Inactive Route: PO, Drug 2015 [place] form: TAB, ONCE, [place] Dosing Weight 69.455, kg, PRN Pain Score 1-3, Start date: 04/22/16 12:12:00 CDT, Duration: 1 doses or times, Stop date: Limited # of timesNotes: Max acetaminophen 4000 mg/day (4 gm/day). (Same as: Tylenol Extra Strength) Hydralazine 10 mg, 0.5 mL, Inactive Route: IVP, Drug 2015 [place] form: INJ, Q20Min, [place] Dosing Weight 68.182, kg, PRN Elevated BP, Start date: 04/22/16 12:12:00 CDT, Duration: 2 doses or times, Stop date: Limited # of timesNotes: (Same as: Apresoline) Push over 5 minutes Labetalol 10 mg, 2 mL, Inactive Route: IVP, Drug 2015 [place] form: INJ, Q5Min, [place] Dosing Weight 68.182, kg, PRN Elevated BP, Start date: 04/22/16 12:12:00 CDT, Duration: 5 doses or times, Stop date: Limited # of timesNotes: (Same as: Normodyne, Trandate) Push over 2 minutes Give bolus over 2-3 minutes. Flumazenil 0.2 mg, 2 mL, Inactive Route: IVP, Drug 2015 [place] form: INJ, PRN, [place] Dosing Weight 69.455, kg, PRN Benzodiazepine Reversal, Initial dose, Start date: 04/22/16 12:12:00 CDT, Duration: 30 day, Stop date: 05/22/16 12:11:00 CDTNotes: (Same as: Romazicon) Hydromorphone 0.5 mg, 0.25 mL, Inactive Route: IVP, Drug 2015 [place] form: INJ, Q5Min, [place] Dosing Weight 68.182, kg, PRN Pain Score 7-10, Start date: 04/22/16 12:12:00 CDT, Duration: 4 doses or times, Stop date: Limited # of timesNotes: (Same as: Dilaudid) Morphine 2 mg, 1 mL, Route: Inactive IVP, Drug form: 2015 [place] INJ, Q5Min, Dosing [place] Weight 69.455, kg, PRN Pain Score 4-6, Start date: 04/22/16 12:12:00 CDT, Duration: 5 doses or times, Stop date: Limited # of timesNotes: (Same as:MORPhine Sulfate) Fentanyl 25 microgram, 0.5 Inactive mL, Route: IVP, 2015 [place] Drug form: INJ, [place] Q5Min, Dosing Weight 69.455, kg, PRN Pain Score 4-6, Start date: 04/22/16 12:12:00 CDT, Duration: 4 doses or times, Stop date: Limited # of timesNotes: (Same as: Sublimaze) Preservative free. Midazolam 1 mg, 1 mL, Route: Inactive IVP, Drug form: 2015 [place] INJ, Q5Min, Dosing [place] Weight 69.455, kg, PRN Anxiety, Start date: 04/22/16 12:12:00 CDT, Duration: 2 doses or times, Stop date: Limited # of timesNotes: (Same as: Versed) MEDICATION WASTE Product Size: 2 mg Product Wasted: _1__ mg 72 HR Scopolamine 1 patch, Route: Inactive 0.0139 MG/HR TOP, Drug Form: 2015 [place] Transdermal Patch ERFILM, Dosing [place] Weight 68.182, kg, ONCE, Apply behind ear. Avoid use in elderly., Start date: 04/22/16 12:12:00 CDT, Stop date: 04/22/16 12:12:00 CDTNotes: Change patch every 72 hours (Same as: Transderm-Scop) Meperidine 12.5 mg, 0.25 mL, Inactive Route: IVP, Drug 2015 [place] form: INJ, Q30Min, [place] Dosing Weight 69.455, kg, PRN Other -See Comment, For shivering, Start date: 04/22/16 12:12:00 CDT, Duration: 2 doses or times, Stop date: Limited # of timesNotes: (Same as: Demerol) "Use Precaution in Elderly, Seizure disorders, and Renal impairment" Ephedrine 5 mg, 1 mL, Route: Inactive IVP, Drug form: 2015 [place] INJ, Q5Min, Dosing [place] Weight 69.455, kg, PRN Low Blood Pressure, Start date: 04/22/16 12:12:00 CDT, Duration: 30 day, Stop date: 05/22/16 12:11:00 CDT Atropine 0.2 mg, 0.5 mL, Inactive Route: IVP, Drug 2015 [place] form: INJ, Q5Min, [place] Dosing Weight 69.455, kg, PRN Other -See Comment, as needed; for symptomatic pulse rate Notes: MEDICATION WASTE Product Size: 0.4 mg Product Wasted: _0.2__ mg Albuterol 0.83 2.49 mg, 3 mL, Inactive MG/ML Inhalant Route: NEB, Drug 2015 [place] Solution form: SOLN, [place] Q20Min, Dosing Weight 69.455, kg, PRN Wheezing, Priority: STAT, Start date: 04/22/16 12:12:00 CDT, Duration: 30 day, Stop date: 05/22/16 12:11:00 CDTNotes: SEE RT DOCUMENTATION (Same as: Proventil) Naloxone 0.4 mg, 1 mL, Inactive Route: IVP, Drug 2015 [place] form: INJ, Q2MIN, [place] Dosing Weight 69.455, kg, PRN Narcotic Reversal, Start date: 04/22/16 12:12:00 CDT, Duration: 8 doses or times, Stop date: Limited # of timesNotes: Same as Narcan Promethazine 6.25 mg, 0.25 mL, Inactive Route: IM, Drug 2015 [place] form: INJ, ONCE, [place] Dosing Weight 69.455, kg, PRN Nausea & Vomiting, Start date: 04/22/16 12:12:00 CDTNotes: Do not give IV push. (Same as: Phenergan) Dexamethasone 4 mg, 1 mL, Route: Inactive IVP, Drug form: 2015 [place] INJ, ONCE, Dosing [place] Weight 69.455, kg, PRN Nausea & Vomiting, Start date: 04/22/16 12:12:00 CDTNotes: Concentration: 4mg/ml Ondansetron 4 mg, 2 mL, Route: Inactive IVP, Drug form: 2015 [place] INJ, ONCE, Dosing [place] Weight 69.455, kg, PRN Nausea & Vomiting, Start date: 04/22/16 12:12:00 CDTNotes: (Same as: Zofran) MEDICATION WASTE Product Size: 4 mg Product Wasted: ___ mg Diphenhydramine 12.5 mg, 0.25 mL, Inactive Route: IVP, Drug 2015 [place] form: INJ, Q6H, [place] Dosing Weight 68.182, kg, PRN Itching, Start date: 04/22/16 12:12:00 CDT, Duration: 1 day, Stop date: 04/23/16 12:11:00 CDTNotes: (Same as: Benadryl) Glycopyrrolate 0.2 mg, 1 mL, Inactive Route: IVP, Drug 2015 [place] form: INJ, Q5Min, [place] Dosing Weight 69.455, kg, PRN Bradycardia, Start date: 04/22/16 12:12:00 CDT, Duration: 3 doses or times, Stop date: Limited # of timesNotes: (Same as: Drea) morphine Sulfate Route: IV, Drug Inactive (ANES) form: INJ, ONCE, 2015 [place] Stop date: 04/22/16 9:29:00 CDT dexamethasone Route: IV, Drug Inactive (ANES) form: INJ, ONCE, 2015 [place] Stop date: 04/22/16 9:29:00 CDT fentaNYL (ANES) Route: IV, Drug Inactive form: INJ, ONCE, 2015 [place] Stop date: 04/22/16 9:29:00 CDT rocuronium (ANES) Route: IV, Drug Inactive form: INJ, ONCE, 2015 [place] Stop date: 04/22/16 9:29:00 CDT propofol (ANES) Route: IV, Drug Inactive form: INJ, ONCE, 2015 [place] Stop date: 04/22/16 9:29:00 CDT acetaminophen Route: IV, Drug Inactive (ANES) form: INJ, ONCE, 2015 [place] Stop date: 04/22/16 9:29:00 CDT lidocaine (ANES) Route: IV, Drug Inactive form: INJ, ONCE, 2015 [place] Stop date: 04/22/16 9:19:00 CDT midazolam (ANES) Route: IV, Drug Inactive form: SOLN, ONCE, 2015 [place] Stop date: 04/22/16 9:19:00 CDT ceFAZolin (ANES) Route: IV, Drug Inactive form: INJ, ONCE, 2015 [place] Stop date: 04/22/16 9:19:00 CDT LR 1000 mL INJ Route: IV, Total Inactive (ANES) Volume: 1,000, 2015 [place] Start date: 04/22/16 8:27:00 CDT, Stop date: 04/22/16 9:27:00 CDT Labetalol 30 mg, 6 mL, Inactive Route: IV, Drug 2015 [place] form: INJ, ONCE, [place] Dosing Weight 69.455, kg, 30mg times one dose now., Start date: 04/22/16 7:31:00 CDT, Stop date: 04/22/16 7:31:00 CDTNotes: (Same as: Normodyne, Trandate) Push over 2 minutes Give bolus over 2-3 minutes. Labetalol 15 mg, 3 mL, Inactive Route: IV, Drug 2015 [place] form: INJ, PRE OP, [place] Dosing Weight 68.182, kg, times one dose for BP 173/121, Start date: 04/22/16 7:00:00 CDTNotes: (Same as: Normodyne, Trandate) Push over 2 minutes Give bolus over 2-3 minutes. BD Normal Saline 10 mL, Route: IV, No Longer Flush Drug Form: INJ, Active 2015 [place] PRN, PRN Line [place] Flush, Start date: 04/22/16 6:00:00 CDT, Duration: 30 day, Stop date: 05/22/16 5:59:00 CDTNotes: (Same as: BD Posiflush) ceFAZolin 2 gm, 100 mL, Inactive Route: IVPB, Drug 2015 [place] form: INJ, ONCALL, [place] Start date: 04/22/16 6:00:00 CDT, Duration: 1 doses or timesNotes: Same as: Ancef Calcium Chloride 1,000 mL, Rate: 25 No Longer 0.0014 MEQ/ML / ml/hr, Infuse Active 2015 [place] Potassium over: 40 hr, [place] Chloride 0.004 Route: IV, Dosing MEQ/ML / Sodium Weight 68.182 kg, Chloride 0.103 Total Volume: MEQ/ML / Sodium 1,000, Start date: Lactate 0.028 04/21/16 22:32:00 MEQ/ML Injectable CDT, Duration: 30 Solution day, Stop date: 05/21/16 22:31:00 CDT lisinopril 10 mg 10 mg=1 tab, PO, On Hold oral tablet Daily, 0 Refill(s) 2015 [place] Allergies, Adverse Reactions, Alerts Substance Category Reaction Severity Reaction Status Date Comments Source type Reported Immunizations Immunization Date Given Site Status Last Updated Comments Source Results Order Name Results Value Reference Date Interpretation Comments Source Range CHEM PANEL eGFR 113 04/23 Result Comment: The eGFR is calculated using the CKD-EPI formula. In most young, healthy individuals the eGFR will be >90 mL/ min/1.73m2. The eGFR declines with age. An eGFR of 60-89 may be normal in [place] mL/min/ some populations, particularly the elderly, for whom the CKD-EPI formula has not been extensively validated. Use of the eGFR is not recommended in the following populations: [place] 73m2 [place] Individuals with unstable creatinine concentrations, including patients and those with serious co-morbid conditions. Patients with extremes in muscle mass or diet. The data above are obtained from the National Kidney Disease Education Program (NKDEP) which additionally recommends that when the eGFR is used in patients with extremes of body mass index for purposes of drug dosing, the eGFR should be multiplied by the estimated BMI. CHEM PANEL Calcium Lvl 8.1 mg/dL 8.5 - 10.5 04/23 /2015 [place] CHEM PANEL CO2 27 meq/L 24 - 32 04/23 [place] CHEM PANEL Sodium Lvl 141 meq/L 135 - 145 04/23 [place] CHEM PANEL Chloride Lvl 105 meq/L 95 - 109 04/23 [place] CHEM PANEL Potassium 3.6 meq/L 3.5 - 5.1 04/23 [facility] Lvl /2015 [place] CHEM PANEL BUN 8 mg/dL 7 - 22 04/23 [place] CHEM PANEL Glucose Lvl 103 mg/dL 70 - 99 04/23 [place] CHEM PANEL Creatinine 0.60 0.50 - 04/23 [facility] Lvl mg/dL 1.40 [place] CHEM PANEL AGAP 12.6 10.0 - 04/23 [facility] meq/L 20.0 [place] HEMATOLOGY Hct 32.6 % 36.0 - 04/23 MH 48.0 [place] HEMATOLOGY Hgb 10.9 g/dL 12.0 - 04/23 MH 16.0 [place] BLOOD BANK Antibody Negative 04/19 RESULTS Scrn [place] (04/19/16 2:30 PM) [facility] BLOOD BANK ABO/Rh B POS 04/19 RESULTS [place] ELECTROLYTES AGAP 11.4 10.0 - 04/19 [facility] meq/L 20. [place] ELECTROLYTES eGFR 110 04/19 Result Comment: The eGFR is calculated using the CKD-EPI formula. In most young, healthy individuals the eGFR will be > 90 mL/min/1.73m2. The eGFR declines with age. An eGFR of 60-89 may be normal in MH mL/min/1. some populations, particularly the elderly, for whom the CKD-EPI formula has not been extensively validated. Use of the eGFR is not recommended in the following populations: [place] 73m2 [place] Individuals with unstable creatinine concentrations, including patients and those with serious co-morbid conditions. Patients with extremes in muscle mass or diet. The data above are obtained from the National Kidney Disease Education Program (NKDEP) which additionally recommends that when the eGFR is used in patients with extremes of body mass index for purposes of drug dosing, the eGFR should be multiplied by the estimated BMI. ELECTROLYTES Potassium 4.4 meq/L 3.5 - 5.1 04/19 [facility] Lvl /2015 [place] ELECTROLYTES Chloride Lvl 107 meq/L 95 - 109 04/19 [place] ELECTROLYTES CO2 28 meq/L 24 - 32 04/19 [place] ELECTROLYTES Calcium Lvl 8.7 mg/dL 8.5 - 10.5 04/19 [place] ELECTROLYTES BUN 12 mg/dL 7 - 22 04/19 [place] ELECTROLYTES Glucose Lvl 80 mg/dL 70 - 99 04/19 [place] ELECTROLYTES Sodium Lvl 142 meq/L 135 - 145 04/19 [place] ELECTROLYTES Creatinine 0.65 0.50 - 04/19 MH Lvl mg/dL 1.40 [place] HEMATOLOGY Segs 63.0 % 45.0 - 04/19 MH 75.0 [place] HEMATOLOGY Monocytes 5.2 % 2.0 - 12.0 04/19 [place] HEMATOLOGY Lymphocytes 30.0 % 20.0 - 04/19 MH 40.0 [place] HEMATOLOGY Basophils 0.6 % 0.0 - 1.0 04/19 [place] HEMATOLOGY Eosinophils 1.2 % 0.0 - 4.0 04/19 [place] HEMATOLOGY Segs-Bands # 4.6 K/CMM 1.5 - 8.1 04/19 [place] HEMATOLOGY Lymphocytes 2.2 K/CMM 1.0 - 5.5 04/19 MH # /2016 [place] HEMATOLOGY Basophils # 0.0 K/CMM 0.0 - 0.2 04/19 [place] HEMATOLOGY Eosinophils 0.1 K/CMM 0.0 - 0.5 04/19 MH # [place] HEMATOLOGY Monocytes # 0.4 K/CMM 0.0 - 0.8 04/19 [place] HEMATOLOGY Hct 41.3 % 36.0 - 04/19 MH 48.0 /2015 [place] HEMATOLOGY MCHC 33.0 g/dL 32.0 - 04/19 MH 36.0 [place] HEMATOLOGY RDW 12.2 % 11.5 - 04/19 MH 14.5 /2015 [place] HEMATOLOGY Platelet 306 K/CMM 133 - 450 04/19 [place] HEMATOLOGY MPV 8.7 fL 7.4 - 10.4 04/19 [place] HEMATOLOGY RBC 4.64 4.20 - 04/19 MH M/CMM 5.40 /2015 [place] HEMATOLOGY Hgb 13.6 g/dL 12.0 - 04/19 16.0 [place] HEMATOLOGY MCV 89.0 fL 80.0 - 04/19 98.0 /2015 [place] HEMATOLOGY MCH 29.4 pg 27.0 - 04/19 MH 31.0 /2015 [place] HEMATOLOGY WBC 7.3 K/CMM 3.7 - 10.4 04/19 [place] IMMUNOLOGY HIV 1/2 Ab Negative Negative 04/19 [place] *NA* [place] (04/19/16 2:30 PM) IMMUNOLOGY Hep C Ab Negative 04/19 [place] *NA* [place] (04/19/16 2:30 PM) URINE CHEM U Preg Negative Negative 04/19 [place] (04/19/16 2:30 PM) [place] Vital Signs Vital Sign Value Date Comments Source Heart Rate 84 04/24/2016 [place] Temperature Oral (F) 97.6 F 04/24/2016 [place] Respitory Rate 16 04/24/2016 [place] Systolic (mm Hg) 128 04/24/2016 [place] Diastolic (mm Hg) 86 04/24/2016 [place] Systolic (mm Hg) 162 04/24/2016 [place] Diastolic (mm Hg) 96 04/24/2016 [place] Respitory Rate 16 04/24/2016 [place] Systolic (mm Hg) 160 04/24/2016 [place] Diastolic (mm Hg) 100 04/24/2016 [place] Heart Rate 77 04/24/2016 [place] Temperature Oral (F) 97.5 F 04/24/2016 [place] Temperature Oral (F) 97.5 F 04/24/2016 [place] Heart Rate 65 04/24/2016 [place] Respitory Rate 16 04/24/2016 [place] Weight 69.455 04/22/2016 [place] BMI Calculated 27.12 04/22/2016 [place] Height 160.02 cm 04/19/2016 [place] En[place] Location Location Encounter Encounter Reason Attending ADM DC Status Source Details Type Number For Provider Date Date Visit [facility] [id number] [facility] 04/22 04/24 [facility] [place] Procedures Procedure Code Date Perfomer Comments Source Hysterectomy<sup>1< [id number] 04/22/2016 Procedure-1 [facility] /sup> 1ST:ANNETTE/CHAVO [facility] TIC TOTAL LAPAROSCOPIC HYSTERECTOMY AND BILATERAL SALPINGO-OOPHOREC PHUC/2ND:HANK/ LAPAROSCOPIC ROBOTIC UTEROSACRAL LIGAMENT SUSPENSION / POSTERIOR COLPORRHAPHY / CYSTOSCOPY/ RESECTION OF A PERINEAL SKIN TAG Salpingectomy [id number] 08/01/2011 [place] Tubal ligation [id number] 08/01/1996 [place] [facility] [id number] 08/01/1993 [facility] [place] O[facility] cyst[facility] [id number] [place] [facility] [id number] [place]
--- NOTE | 2018-07-21 17:02 | P.SSS ---
Patient History Date of Service: 07/21/18 Reason for admission: Abdominal pain with acute diverticulitis History of Present Illness: Patient is a 42-year-old female came into the hospital with abdominal pain. Pain was in the left lower quadrant. There was no rebound or guarding. Patient has had workup done at her GI is office. She was found to have acute diverticulitis and sent to the ER. Patient is currently on antibiotics. Continue with pain control. Start clear liquid diet in the morning. She will need further outpatient studies. She had diverticulitis x3 this year. She will need colonoscopy done in the next 6-12 weeks. Allergies Sulfa (Sulfonamide Antibiotics) Adverse Reaction (Verified 07/20/18 01:14) Nausea/Vomiting Home Medications: Escitalopram Oxalate [Lexapro] 10 mg PO DAILY 07/20/18 Estradiol [Estrace] 1 mg PO DAILY 07/20/18 Lisinopril [Prinivil*] 10 mg PO DAILY 07/20/18 Ondansetron [Zofran (Odt)*] 2 tab PO Q8H 07/20/18 Progesterone,Micronized [Prometrium] 200 mg PO DAILY 07/20/18 levoFLOXacin [Levaquin*] 500 mg PO 2100 #10 tab 07/21/18 metroNIDAZOLE [Flagyl*] 500 mg PO TID #30 tablet 07/21/18 - Past Medical/Surgical History Has patient received pneumonia vaccine in the past: No Diabetic: No -: Diverticulitis -: HTN -: hysterectomy - Social History Smoking Status: Never smoker Alcohol use: No CD- Drugs: No Caffeine use: No Place of Residence: Home Review of Systems 10-point ROS is otherwise unremarkable Physical Examination - Vital Signs Temperature: 96.7 F Blood Pressure: 148/86 Pulse: 63 Respirations: 18 Pulse Ox (%): 99 - Physical Exam General: Alert, In no apparent distress HEENT: Atraumatic, PERRLA, Mucous membr. moist/pink, EOMI, Sclerae nonicteric Neck: Supple, 2+ carotid pulse no bruit, No LAD, Without JVD or thyroid abnormality Respiratory: Clear to auscultation bilaterally, Normal air movement Cardiovascular: Regular rate/rhythm, Normal S1 S2 Gastrointestinal: Normal bowel sounds, No tenderness Musculoskeletal: No tenderness Integumentary: No rashes Neurological: Normal gait, Normal speech, Normal strength at 5/5 x4 extr, Normal tone, Normal affect Lymphatics: No axilla or inguinal lymphadenopathy - Diagnosis (Problem(s)) (1) Acute diverticulitis Onset Date: 07/20/18 Status: Acute Treatment Summary: Overall during the hospital stay patient remained stable Patient was admitted to the hospital for acute diverticulitis after was found to have abdominal pain nausea and vomiting. Patient was admitted to the hospital with IV antibiotics Cipro and Flagyl and IV fluids. Patient had significant resolution of her symptoms and abdominal pain nausea vomiting resolved. Patient then was switched over to oral antibiotics and was advanced to a clear liquid. Patient was able to tolerate the diet well and thus was discharged home under stable condition was asked to continue taking Cipro and Flagyl. Patient was also asked to follow up with GI doctor in about 1-2 weeks post discharge. - Disposition Disposition: ROUTINE DISCHARGE Condition: GOOD Diet: Regular Activity: Ad merary
== END 2018-07-21 11:44 | disposition home or self-care (01) | DRG 392 ==
LOC: ER 21:17 → ERHOLD 21:50 → 4TH 07-20 00:43
PROVIDERS: ADMIT Hospitalist; ATTEND Family Medicine
DX: K57.32 Diverticulitis of large intestine without perforation or abscess without bleeding (principal); Z88.2 Allergy status to sulfonamides; I10 Essential (primary) hypertension
CPT/HCPCS: 36415; 74177; 80048; 80053; 80076; 81003; 82150; 83690; 85025; 85610; 85652; 85730; 87086; 87088; 96365; 96375; 99285; J0696; J2270; J2405; J2550; J7030; Q9967

== ENCOUNTER 2019-08-03 12:39 | Inpatient (IN) | payer BC, OTHER ==
[2019-08-03 13:35] LABS: Absolute Lymphocytes (CBC) 1.8 K/uL (0.7-4.9); Basophils % 0.4 % (0-1.3); Lymphocytes % 11.9 % (15.3-44.8); MPV 8.1 fL (7.6-11.3); RBC Red Blood Cell Count 4.58 M/uL (3.86-4.86)
[2019-08-03 13:35] LABS: Urine Blood NEGATIVE (NEG); Urine Glucose NEGATIVE (NEG); Urine Protein NEGATIVE (NEG); Urine Specific Gravity >1.030 (1.005-1.030)
[2019-08-03] MEDS ORDERED: NA CHLORIDE 0.9% 1,000 ML ONE (13:37)
[2019-08-03] MEDS ORDERED: MORPHINE 4 MG/ML SYR ONE ×2 (13:37→16:19)
[2019-08-03] MEDS ORDERED: ONDANSETRON 4 MG/2 ML VIAL ONE ×2 (13:37→16:19)
[2019-08-03 13:50] LABS: Albumin 3.4 g/dL (3.4-5.0); Bilirubin Direct 0.1 mg/dL (0-0.2); Bilirubin Total 0.7 mg/dL (0.2-1.0); Protein, Total 7.6 g/dL (6.4-8.2)
--- NOTE | 2019-08-03 14:22 | RAD REPORT ---
EXAM DESCRIPTION: CT - Abdomen Pelvis W Contrast - 08/03/2019 2:07 pm CLINICAL HISTORY: ABD PAIN COMPARISON: Abdomen Pelvis W Contrast dated 09/18/2018 TECHNIQUE: Biphasic, helical CT imaging of the abdomen and pelvis was performed following 100 ml non -ionic IV contrast. No oral contrast. All CT scans are performed using dose optimization technique as appropriate and may include automated exposure control or mA/KV adjustment according to patient size. FINDINGS: No suspicious findings in the lung bases. The liver, spleen, and pancreas show no suspicious findings. Gallbladder and biliary tree are also wi thout suspicious finding. Symmetric renal function is seen with no hydronephrosis or suspicious renal mass. No pyelonephritis o r acute parenchymal process. No bladder abnormalities. No adrenal abnormalities. No stomach or small bowel acute findings. Retrocecal appendix is normal. Moderately large stool volum e fills the colon from cecum through descending colon. There is prominent sigmoid diverticulosis and prominent descending colon diverticulosis. Approximately 10 centimeter long segment of the distal karan cending colon and proximal sigmoid colon shows circumferential wall thickening. There is stranding an d edema in the adjacent fat. Trace amounts of free fluid are present. No abscess or free air. No extr avasation of bowel content. This diverticulitis pattern is the same location seen September 2018. No free air or pneumatosis. No other sites of inflammatory stranding. No hernia, mass or bulky lymp hadenopathy. No suspicious bony findings. IMPRESSION: Acute diverticulitis involving a 10 centimeter long segment at the descending sigmoid co brice junction. This is the same location seen September 2018. No abscess, free air, extravasation of bowel content or other emergent finding.
--- NOTE | 2019-08-03 14:53 | ER ---
Nurse's Notes [facility] Name: Teri Yates Age: 43 yrs Sex: Female : 1975 Arrival Date: 08/03/2019 Time: 12:43 Bed 20 Private MD: Diagnosis: Diverticulitis of large intestine without perforation or abscess without bleeding Presentation: 08/03 12:50 Presenting complaint: Patient states: diverticulitis "flare up" x 2 weeks that is ss getting worse. Transition of care: patient was not received from another setting of care. Onset of symptoms was July 20, 2019. Risk Assessment: Do you want to hurt yourself or someone else? Patient reports no desire to harm self or others. Initial Sepsis Screen: Does the patient meet any 2 criteria? No. Patient's initial sepsis screen is negative. Does the patient have a suspected source of infection? No. Patient's initial sepsis screen is negative. Care prior to arrival: None. 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 - Social history:: Smoking status: Patient/guardian denies using tobacco. - Ebola Screening: : Patient denies exposure to infectious person Patient denies travel to an Ebola-affected area in the 21 days before illness onset. Screenin:53 Abuse screen: Denies threats or abuse. Denies injuries from another. Nutritional mg2 screening: No deficits noted. Tuberculosis screening: No symptoms or risk factors identified. Fall Risk IV access (20 points). Assessment: 13:45 Pain: Complains of pain in abdomen Pain currently is 6 out of 10 on a pain scale. mg2 Neuro: Level of Consciousness is awake, alert, obeys commands, Oriented to person, place, time, situation. Cardiovascular: Capillary refill < 3 seconds Patient's skin is warm and dry. Respiratory: Airway is patent Respiratory effort is even, unlabored, Respiratory pattern is regular, symmetrical. GI: Bowel sounds present X 4 quads. Abd is soft and non tender Reports lower abdominal pain, upper abdominal pain, nausea. : No signs and/or symptoms were reported regarding the genitourinary system. EENT: No signs and/or symptoms were reported regarding the EENT system. Derm: Skin is intact, is healthy with good turgor, Skin is pink, warm \\T\\ dry. normal. Musculoskeletal: Circulation, motion, and sensation intact. Capillary refill < 3 seconds. 13:52 General: Appears in no apparent distress. comfortable, Behavior is calm, cooperative. mg2 14:47 Reassessment: Patient appears in no apparent distress at this time. Patient and/or mg2 family updated on plan of care and expected duration. Pain level reassessed. Patient is alert, oriented x 3, equal unlabored respirations, skin warm/dry/pink. Vital Signs: 12:53 BP 147 / 106; Pulse 119; Resp 18; Temp 97.8; Pulse Ox 97% on R/A; Weight 65.77 kg; ss Height 5 ft. 3 in. (160.02 cm); Pain 7/10; 14:48 Pulse 85; Resp 18; Pulse Ox 100% on R/A; mg2 17:28 BP 106 / 71; Pulse 96; Resp 18; Pulse Ox 97% on R/A; mg2 12:53 Body Mass Index 25.69 (65.77 kg, 160.02 cm) ED Course: 12:43 Patient arrived in ED. mr 12:51 Triage completed. ss 12:53 Arm band placed on left wrist. ss 12:54 Dieudonne Hernadez NP is PHCP. pm1 12:54 Denis Bolton MD is Attending Physician. pm1 13:27 Initial lab(s) drawn, by il, sent to lab. Inserted saline lock: 22 gauge in right kj1 antecubital area, using aseptic technique. Blood collected. 13:37 Milad Foy, ROJAS is Primary Nurse. mg2 13:54 Patient has correct armband on for positive identification. mg2 14:08 CT Abd/Pelvis - IV Contrast Only In Process Unspecified. EDMS 14:52 Harjit Farmer DO is Hospitalizing Provider. pm1 17:55 No provider procedures requiring assistance completed. Patient admitted, IV remains in mg2 place. Administered Medications: 13:42 Drug: morphine 4 mg Route: IVP; Site: right antecubital; mg2 14:48 Follow up: Response: No adverse reaction; Marked relief of symptoms; RASS: Alert and mg2 Calm (0) 13:42 Drug: Zofran 4 mg Route: IVP; Site: right antecubital; mg2 14:48 Follow up: Response: No adverse reaction; Marked relief of symptoms mg2 13:42 Drug: NS 0.9% 1000 ml Route: IV; Rate: 1000 ml; Site: right antecubital; mg2 14:49 Follow up: Response: No adverse reaction; IV Status: Completed infusion; IV Intake: mg2 1000ml 15:27 Drug: Flagyl 500 mg Volume: 100 ml; Route: IVPB; Rate: 200 ml/hr; Infused Over: 30 mg2 mins; Site: right antecubital; 17:52 Follow up: Response: No adverse reaction; IV Status: Completed infusion mg2 16:18 Drug: Zosyn 3.375 grams Route: IVPB; Infused Over: 60 mins; Site: right antecubital; mg2 17:53 Follow up: Response: No adverse reaction; IV Status: Completed infusion mg2 16:23 Drug: morphine 4 mg Route: IVP; Site: right antecubital; mg2 17:53 Follow up: Response: No adverse reaction; RASS: Alert and Calm (0) mg2 16:23 Drug: Zofran 4 mg Route: IVP; Site: right antecubital; mg2 17:54 Follow up: Response: No adverse reaction mg2 17:52 Drug: Phenergan 12.5 mg Route: IVP; Site: right antecubital; mg2 17:57 Follow up: Response: No adverse reaction mg2 Intake: 14:49 IV: 1000ml; Total: 1000ml. mg2 Outcome: 14:52 Decision to Hospitalize by Provider. pm1 17:56 Admitted to Med/surg accompanied by tech, via wheelchair, room 206, with chart, Report mg2 called to ROJAS Conner 17:56 Condition: stable 17:56 Instructed on the need for admit, Demonstrated understanding of instructions. 18:03 Patient left the ED. mg2 Signatures: Dispatcher [employer] EDMS ManSonya Shelby, RN RN ss Dieudonne Hernadez, PRODUCT DESIGNER PRODUCT DESIGNER pm1 Milad Foy RN RN mg2 Kami Jacobson kj1
--- NOTE | 2019-08-03 14:54 | EDPHYS ---
Physician Documentation [facility] Name: Teri Yates Age: 43 yrs Sex: Female : 1975 Arrival Date: 08/03/2019 Time: 12:43 Bed 20 Private MD: ED Physician Denis Bolton HPI: 08/03 13:16 This 43 yrs old Female presents to ER via Ambulatory with complaints of pm1 Abdominal Pain. 13:16 The patient presents with abdominal pain that is diffuse. Onset: The symptoms/episode pm1 began/occurred 1.5 week(s) ago. The symptoms do not radiate. Associated signs and symptoms: Pertinent positives: nausea, Pertinent negatives: chest pain, constipation, diarrhea, dysuria, fever, shortness of breath, vomiting. The symptoms are described as crampy, sharp. Modifying factors: The symptoms are alleviated by nothing, the symptoms are aggravated by nothing. Severity of pain: in the emergency department the pain is actually worse. The patient has experienced similar episodes in the past, multiple times. The patient has not recently seen a physician, but called Dr. aCrrillo 4 days ago and was called in a prescription for two antibiotics. Feels similar to her prior diverticulitis. No improvement after 4 days so came to ER.. 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 - Social history:: Smoking status: Patient/guardian denies using tobacco. - Ebola Screening: : Patient denies exposure to infectious person Patient denies travel to an Ebola-affected area in the 21 days before illness onset. ROS: 13:16 Constitutional: Negative for fever, chills, and weight loss, Cardiovascular: Negative pm1 for chest pain, palpitations, and edema, Respiratory: Negative for shortness of breath, cough, wheezing, and pleuritic chest pain. 13:16 Back: Negative for injury and pain, : Negative for injury, bleeding, discharge, and swelling, MS/Extremity: Negative for injury and deformity, Skin: Negative for injury, rash, and discoloration, Neuro: Negative for headache, weakness, numbness, tingling, and seizure. 13:16 Abdomen/GI: Positive for abdominal pain, nausea, constipation, Negative for vomiting, diarrhea. 13:16 All other systems are negative. Exam: 13:16 Constitutional: This is a well developed, well nourished patient who is awake, alert, pm1 and in no acute distress. Head/Face: Normocephalic, atraumatic. Neck: Trachea midline, no thyromegaly or masses palpated, and no cervical lymphadenopathy. Supple, full range of motion without nuchal rigidity, or vertebral point tenderness. No Meningismus. Chest/axilla: Normal chest wall appearance and motion. Nontender with no deformity. No lesions are appreciated. Cardiovascular: Regular rate and rhythm with a normal S1 and S2. No gallops, murmurs, or rubs. Normal PMI, no JVD. No pulse deficits. Respiratory: Lungs have equal breath sounds bilaterally, clear to auscultation and percussion. No rales, rhonchi or wheezes noted. No increased work of breathing, no retractions or nasal flaring. 13:16 Back: No spinal tenderness. No costovertebral tenderness. Full range of motion. Skin: Warm, dry with normal turgor. Normal color with no rashes, no lesions, and no evidence of cellulitis. MS/ Extremity: Pulses equal, no cyanosis. Neurovascular intact. Full, normal range of motion. 13:16 Abdomen/GI: Inspection: abdomen appears normal, Bowel sounds: normal, Palpation: soft, moderate abdominal tenderness, in the abdomen diffusely, mass, is not appreciated, rebound tenderness, is not appreciated. 13:16 Neuro: Orientation: is normal, Motor: is normal, moves all fours, Sensation: is normal, no obvious gross deficits. Vital Signs: 12:53 BP 147 / 106; Pulse 119; Resp 18; Temp 97.8; Pulse Ox 97% on R/A; Weight 65.77 kg; ss Height 5 ft. 3 in. (160.02 cm); Pain 7/10; 14:48 Pulse 85; Resp 18; Pulse Ox 100% on R/A; mg2 17:28 BP 106 / 71; Pulse 96; Resp 18; Pulse Ox 97% on R/A; mg2 12:53 Body Mass Index 25.69 (65.77 kg, 160.02 cm) ss MDM: 13:10 Patient medically screened. pm1 14:23 Data reviewed: vital signs. Data interpreted: Pulse oximetry: on room air is 97 %. pm1 Interpretation: normal. 14:47 Counseling: I had a detailed discussion with the patient and/or guardian regarding: the pm1 historical points, exam findings, and any diagnostic results supporting the discharge/admit diagnosis, lab results, radiology results, the need for further work-up and treatment in the hospital, will admit the patient to the hospital due to failed antibiotic therapy for diverticulitis . 15:37 Physician consultation: Harjit Farmer DO was contacted at 15:38, regarding admission, pm1 consult, patient's condition, and will see patient in ED, wants procalcitonin, blood cultures, urine cultures. 08/03 13:10 Order name: Basic Metabolic Panel; Complete Time: 14:15 pm08/03 13:10 Order name: CBC with Diff; Complete Time: 14:15 pm08/03 13:10 Order name: Creatinine for Radiology; Complete Time: 14:15 pm08/03 13:10 Order name: Hepatic Function; Complete Time: 14:15 pm08/03 13:10 Order name: Lipase; Complete Time: 14:15 pm08/03 13:29 Order name: Urine Dipstick--Ancillary (enter results); Complete Time: 13:38 em08/03 13:25 Order name: CT Abd/Pelvis - IV Contrast Only; Complete Time: 14:37 pm08/03 13:29 Order name: Urine --Ancillary (enter results); Complete Time: 13:38 em08/03 15:37 Order name: Procalcitonin; Complete Time: 17:12 pm1 08/03 15:37 Order name: Blood Culture Adult (2) pm1 08/03 15:37 Order name: Urine Culture pm1 08/03 13:10 Order name: IV Saline Lock; Complete Time: 13:42 pm1 08/03 13:10 Order name: Labs collected and sent; Complete Time: 13:42 pm1 08/03 13:10 Order name: Urine Dipstick-Ancillary (obtain specimen); Complete Time: 13:28 pm1 08/03 13:10 Order name: Urine Test (obtain specimen); Complete Time: 13:27 pm1 Administered Medications: 13:42 Drug: morphine 4 mg Route: IVP; Site: right antecubital; mg2 14:48 Follow up: Response: No adverse reaction; Marked relief of symptoms; RASS: Alert and mg2 Calm (0) 13:42 Drug: Zofran 4 mg Route: IVP; Site: right antecubital; mg2 14:48 Follow up: Response: No adverse reaction; Marked relief of symptoms mg2 13:42 Drug: NS 0.9% 1000 ml Route: IV; Rate: 1000 ml; Site: right antecubital; mg2 14:49 Follow up: Response: No adverse reaction; IV Status: Completed infusion; IV Intake: mg2 1000ml 15:27 Drug: Flagyl 500 mg Volume: 100 ml; Route: IVPB; Rate: 200 ml/hr; Infused Over: 30 mg2 mins; Site: right antecubital; 17:52 Follow up: Response: No adverse reaction; IV Status: Completed infusion mg2 16:18 Drug: Zosyn 3.375 grams Route: IVPB; Infused Over: 60 mins; Site: right antecubital; mg2 17:53 Follow up: Response: No adverse reaction; IV Status: Completed infusion mg2 16:23 Drug: morphine 4 mg Route: IVP; Site: right antecubital; mg2 17:53 Follow up: Response: No adverse reaction; RASS: Alert and Calm (0) mg2 16:23 Drug: Zofran 4 mg Route: IVP; Site: right antecubital; mg2 17:54 Follow up: Response: No adverse reaction mg2 17:52 Drug: Phenergan 12.5 mg Route: IVP; Site: right antecubital; mg2 17:57 Follow up: Response: No adverse reaction mg2 Disposition: 08/03/19 14:52 Hospitalization ordered by Harjit Farmer for Inpatient Admission. Preliminary diagnosis is Diverticulitis of large intestine without perforation or abscess without bleeding. - Bed requested for Telemetry/MedSurg (Inpatient). - Status is Inpatient Admission. mg2 - Condition is Stable. - Problem is new. - Symptoms have improved. UTI on Admission? No Addendum: 08/06/2019 06:53 Co-signature as Attending Physician, Denis Bolton MD I agree with the assessment and k dr plan of care. Signatures: Dispatcher [employer] EDNJ Melanie Hermosillo, RN RN Denis Bolton MD MD [facility] Lisandra Campbell RN RN ss Dieudonne Hernadez, DENTAL LABORATORY ASSISTANT DENTAL LABORATORY ASSISTANT pm1 Milad Foy RN RN mg2 Corrections: (The following items were deleted from the chart) 08/03 17:18 14:52 Hospitalization Ordered by Harjit Farmer DO for Inpatient Admission. Preliminary dw diagnosis is Diverticulitis of large intestine without perforation or abscess without bleeding. Bed requested for Telemetry/MedSurg (Inpatient). Status is Inpatient Admission. Condition is Stable. Problem is new. Symptoms have improved. UTI on Admission? No. pm1 18:03 17:18 08/03/2019 14:52 Hospitalization Ordered by Harjit Farmer DO for Inpatient mg2 Admission. Preliminary diagnosis is Diverticulitis of large intestine without perforation or abscess without bleeding. Bed requested for Telemetry/MedSurg (Inpatient). Status is Inpatient Admission. Condition is Stable. Problem is new. Symptoms have improved. UTI on Admission? No. dw
[2019-08-03] MEDS ORDERED: METRONIDAZOLE 500mg IVPB 500 MG/100 ML BAG IV ONE (14:55)
[2019-08-03] MEDS ORDERED: PIPER/TAZO/NS 3.375gm 3.375 GM/100 ML BAG ONE (14:55)
--- NOTE | 2019-08-03 16:15 | P.HP ---
Certification for Inpatient Patient admitted to: Inpatient With expected LOS: >2 Midnights Patient will require the following post-hospital care: None Practitioner: I am a practitioner with admitting privileges, knowledge of patient current condition, hospital course, and medical plan of care. Services: Services provided to patient in accordance with Admission requirements found in Title 42 Section 412.3 of the Code of Federal Regulations Patient History Date of Service: 08/03/19 Primary Care Provider: Dr. Dean; GI-Dr. Carrillo Reason for admission: Abdominal pain, failed outpatient treatment History of Present Illness: 43-year-old female with history of recurrent diverticulitis. Patient reports a history of recurrent diverticulitis. She has had multiple episodes in 2019. She is seen locally by GI-Dr. Carrillo. She has been referred to surgeon Dr. Hyatt at [facility] for possible future colectomy. He has not followed up with him yet. She reports about a week ago she began to have pain to the left side and left lower quadrant of the abdomen. She called her GI specialist. GI call then prescription of Cipro Flagyl. She has been taking it the last 4 days without improvement. Pain 10/10. Mainly to the left quadrant. She reports no fever but chills noted. Some nausea as well. Patient came to the ER due to continued pain. In the ER patient evaluated. White count elevated at 15. BMP stable. CT scan shows acute diverticulitis involving 10 cm segment to the descending sigmoid colon junction. No abscess, free air or or emergent finding noted. Patient given IV antibiotic therapy and IV fluids in the emergency room. IV pain medication provided. Patient admitted for further evaluation and treatment. When I saw the patient in the ER, pain better controlled. Patient with history of recurrent diverticulitis, hypertension, depression. As mentioned above, she is to see surgery for possible colectomy in the future. Allergies Sulfa (Sulfonamide Antibiotics) Adverse Reaction (Verified 07/20/18 01:14) Nausea/Vomiting Home medications list reviewed: Yes Home Medications: Escitalopram Oxalate [Lexapro] 10 mg PO DAILY 07/20/18 Estradiol [Estrace] 1 mg PO DAILY 07/20/18 Ondansetron [Zofran (Odt)*] 2 tab PO Q8H 07/20/18 Progesterone,Micronized [Prometrium] 200 mg PO DAILY 07/20/18 lisinopriL [Prinivil*] 10 mg PO DAILY 07/20/18 levoFLOXacin [Levaquin*] 500 mg PO 2100 #10 tab 07/21/18 metroNIDAZOLE [Flagyl*] 500 mg PO TID #30 tablet 07/21/18 - Past Medical/Surgical History Diabetic: No -: Recurrent diverticulitis -: HTN -: Depression with anxiety -: Hysterectomy Psychosocial/ Personal History: Patient is . She lives at home. - Family History Family History: Reviewed- Non-Contributory - Social History Smoking Status: Never smoker Alcohol use: Yes CD- Drugs: No Caffeine use: No Place of Residence: Home Review of Systems General: Chills, As per HPI Eyes: Unremarkable ENT: Unremarkable Respiratory: Unremarkable Cardiovascular: Unremarkable Gastrointestinal: Nausea, Abdominal Pain, As per HPI Genitourinary: Unremarkable Musculoskeletal: Unremarkable Integumentary: Unremarkable Neurological: Unremarkable Lymphatics: Unremarkable Physical Examination - Physical Exam General: Alert, In no apparent distress, Oriented x3, Cooperative HEENT: Atraumatic, Normocephalic Neck: Supple Respiratory: Clear to auscultation bilaterally, Normal air movement Cardiovascular: Normal pulses, Regular rate/rhythm Gastrointestinal: Hypoactive, Non-distended, Tenderness (Pain to the left quadrant and left lower quadrant) Musculoskeletal: No erythema, No tenderness, No warmth Integumentary: No tenderness/swelling, No erythema, No warmth, No cyanosis Neurological: Normal speech, Normal strength at 5/5 x4 extr, Normal tone - Studies Laboratory Data (last 24 hrs) 08/03/19 13:24: Creatinine 0.96 08/03/19 13:24: WBC 15.3 H, Hgb 13.9, Hct 41.0, Plt Count 325 08/03/19 13:24: Sodium 141, Potassium 4.0, BUN 17, Creatinine 0.98, Glucose 128 H, Total Bilirubin 0.7, AST 11 L, ALT 31, Alkaline Phosphatase 79, Lipase 111 Assessment and Plan - Plan Impression: Acute recurrent diverticulitis failed outpatient therapy Hypertension Depression with anxiety Plan: Acute recurrent diverticulitis failed outpatient therapy: Patient will be admitted for treatment. Will continue to keep the patient NPO. Will provide IV fluids. Will start IV Zosyn. Will discuss case further with her payroll specialist. Anticipate improvement over the next 3-5 days. Patient will require surgical evaluation as an outpatient for future colectomy due to recurrent diverticulitis. Hypertension: Will provide IV medication at this time. Once taking oral intake then will restart home medication. Depression with anxiety: Will provide IV medication at this time. Once taking oral intake then will restart home medication. Discharge Plan: Home Plan to discharge in: Greater than 2 days - Advance Directives Does patient have a Living Will: No Does patient have a Durable POA for Healthcare: No - Code Status/Comfort Care Code Status Assessed: Yes (Patient is full code) Time Spent Managing Pts Care (In Minutes): 55
[2019-08-03] MEDS ORDERED: PROMETHAZINE INJ 25 MG/ML AMP ONE (17:50)
[2019-08-03 18:14] VITALS: BMI 27.6
[2019-08-03] MEDS ORDERED: ACETAMINOPHEN 650MG/RECT SUPP PR PRN (18:15)
[2019-08-03] MEDS ORDERED: HYDRALAZINE HCL 20 MG/ML VIAL IV PRN (18:15)
[2019-08-03] MEDS ORDERED: ACETAMINOPHEN 500 MG TAB PO PRN (18:15)
[2019-08-03] MEDS ORDERED: ONDANSETRON 4 MG/2 ML VIAL IV PRN (18:15)
[2019-08-03] MEDS ORDERED: LORazepam 2 MG/ML VIAL IV PRN (18:15)
[2019-08-03] MEDS ORDERED: METRONIDAZOLE 500mg IVPB 500 MG/100 ML BAG IV SCH (19:00)
[2019-08-03] MEDS: NA CHLORIDE 0.9% 1,000 ML IV SCH (19:45)
[2019-08-03] MEDS: MORPHINE 2 MG/ML SYR IV PRN (20:27)
[2019-08-03] MEDS ORDERED: ENOXAPARIN 40 MG/0.4 ML SQ SCH (21:00)
[2019-08-04] MEDS ORDERED: ONDANSETRON 4 MG/2 ML VIAL IV ONE (00:22)
[2019-08-04] MEDS: MORPHINE 2 MG/ML SYR IV PRN ×4 (00:42→20:07)
[2019-08-04] MEDS: PIPER/TAZO/NS 3.375gm 3.375 GM/100 ML BAG IVPB SCH ×3 (00:44→16:08)
[2019-08-04] MEDS ORDERED: METRONIDAZOLE 500mg IVPB 500 MG/100 ML BAG IV SCH (01:00)
[2019-08-04 01:16] LABS: Urine Appearance CLEAR; Urine Bilirubin NEGATIVE (NEG); Urine Blood NEGATIVE (NEG); Urine Color YELLOW; Urine Glucose NEGATIVE (NEG); Urine Protein NEGATIVE (NEG); Urine Specific Gravity >=1.030 (1.005-1.030); Urine Urobilinogen 0.2 mg/dL (0.2-1.0)
[2019-08-04 01:24] LABS: Urine Microscopic Reflex ORDER UMIC
[2019-08-04 01:29] LABS: Urine Bacteria <20 /HPF (<20); Urine Culture Reflex Order NOT NEEDED; Urine RBC <5 /HPF (NONE SEEN)
[2019-08-04] MEDS: ONDANSETRON 4 MG/2 ML VIAL IV PRN (04:40)
[2019-08-04] MEDS: NA CHLORIDE 0.9% 1,000 ML IV SCH ×3 (04:44→16:09)
[2019-08-04 05:52] LABS: Absolute Lymphocytes (CBC) 1.9 K/uL (0.7-4.9); Basophils % 0.3 % (0-1.3); Hematocrit 35.5 % (36.0-45.0); Lymphocytes % 13.3 % (15.3-44.8); MPV 8.1 fL (7.6-11.3); RBC Red Blood Cell Count 3.91 M/uL (3.86-4.86)
[2019-08-04 06:02] LABS: Potassium 4.2 mmol/L (3.5-5.1)
[2019-08-04] MEDS: PROMETHAZINE INJ 25 MG/ML AMP IV PRN ×3 (09:52→20:05)
--- NOTE | 2019-08-04 14:14 | P.PN ---
Subjective Date of Service: 08/04/19 Primary Care Provider: Dr. Dean; GI-Dr. Carrillo Chief Complaint: Abdominal pain, failed outpatient treatment Subjective: Improving, Other (Pain to the abdomen improved.) Physical Examination - Vital Signs Temperature: 97.7 F Blood Pressure: 105/62 Pulse: 84 Respirations: 16 Pulse Ox (%): 99 - Physical Exam General: Alert, In no apparent distress, Oriented x3, Cooperative HEENT: Atraumatic Neck: Supple Respiratory: Clear to auscultation bilaterally, Normal air movement Cardiovascular: Normal pulses, Regular rate/rhythm Gastrointestinal: Tenderness (Pain to the left quadrant improved.) Neurological: Normal speech, Normal strength at 5/5 x4 extr, Normal tone, Normal affect - Studies Medications List Reviewed: Yes Assessment & Plan Discharge Plan: Home Plan to discharge in: 72 Hours Physician Review Additional Text: Impression: Acute recurrent diverticulitis failed outpatient therapy Hypertension Depression with anxiety Plan: Acute recurrent diverticulitis failed outpatient therapy: Pain improved. Continue NPO. Continue IV antibiotic therapy. Case discussed with Gastroenterology. At discharge patient will go home on Augmentin and Flagyl. Anticipate discharge in the next 3-4 days with clinical improvement. Patient will require surgical evaluation as an outpatient for future colectomy due to recurrent diverticulitis. Hypertension: Will provide IV medication at this time. Once taking oral intake then will restart home medication. Depression with anxiety: Will provide IV medication at this time. Once taking oral intake then will restart home medication. Time Spent Managing Pts Care (In Minutes): 55
[2019-08-04] MEDS: ENOXAPARIN 40 MG/0.4 ML SQ SCH (20:13)
--- NOTE | 2019-08-04 20:15 | RAD REPORT ---
EXAM DESCRIPTION: RAD - Abdomen 1 View (KUB) - 08/04/2019 7:58 pm CLINICAL HISTORY: abdominal pain, diverticulitis COMPARISON: Abdomen Pelvis W Contrast dated 08/03/2019 FINDINGS: Bowel gas pattern is non-specific. No obstruction, free air or pneumatosis. No focal abno rmality in the left lower quadrant or elsewhere to indicate complication from the previously diagnose d diverticulitis. Moderate stool volume is seen in the colon. No significant bony findings IMPRESSION: Negative KUB examination for acute or significant finding.
[2019-08-05] MEDS: PIPER/TAZO/NS 3.375gm 3.375 GM/100 ML BAG IVPB SCH ×3 (00:31→17:42)
[2019-08-05] MEDS: NA CHLORIDE 0.9% 1,000 ML IV SCH ×3 (00:33→17:42)
[2019-08-05] MEDS ORDERED: MEPERIDINE HCL 25 MG/0.5 ML IV ONE (00:53)
[2019-08-05] MEDS: PROMETHAZINE INJ 25 MG/ML AMP IV PRN ×2 (05:42→23:22)
[2019-08-05] MEDS: MORPHINE 2 MG/ML SYR IV PRN ×5 (05:43→23:22)
[2019-08-05 05:47] LABS: Absolute Lymphocytes (CBC) 1.9 K/uL (0.7-4.9); Basophils % 0.3 % (0-1.3); Hematocrit 32.5 % (36.0-45.0); MPV 8.1 fL (7.6-11.3); RBC Red Blood Cell Count 3.65 M/uL (3.86-4.86)
[2019-08-05 06:22] LABS: Potassium 3.6 mmol/L (3.5-5.1)
[2019-08-05] MEDS: ONDANSETRON 4 MG/2 ML VIAL IV PRN ×3 (08:44→17:42)
--- NOTE | 2019-08-05 11:22 | P.PN ---
Subjective Date of Service: 08/05/19 Primary Care Provider: Dr. Dean; GI-Dr. Carrillo Chief Complaint: Abdominal pain, failed outpatient treatment Subjective: Improving (Slowly improving. Pain to the abdomen improved. Still with mild nausea) Physical Examination - Vital Signs Temperature: 97.8 F Blood Pressure: 122/67 Pulse: 80 Respirations: 18 Pulse Ox (%): 97 - Physical Exam General: Alert, In no apparent distress, Oriented x3, Cooperative HEENT: Atraumatic Neck: Supple Respiratory: Clear to auscultation bilaterally, Normal air movement Cardiovascular: Normal pulses, Regular rate/rhythm Gastrointestinal: Normal bowel sounds, Soft and benign, Non-distended, Tenderness (Tenderness to the left quadrant improved) Neurological: Normal speech, Normal strength at 5/5 x4 extr, Normal tone - Studies Medications List Reviewed: Yes Assessment & Plan Discharge Plan: Home Plan to discharge in: 72 Hours Physician Review Additional Text: Impression: Acute recurrent diverticulitis failed outpatient therapy Hypertension Depression with anxiety Plan: Acute recurrent diverticulitis failed outpatient therapy: KUB unremarkable yesterday. Surgery consulted yesterday. No plan for surgery at this time. Encourage ambulation. Encourage incentive spirometer. Pain improved. Continue NPO. Continue IV antibiotic therapy. Case discussed with Gastroenterology on Tuesday. Anticipate improvement over the next 2-3 days. I will turn the service over to the hospital team tomorrow. I will go over the plan of care with him. At discharge patient will go home on Augmentin and Flagyl. Anticipate discharge in the next 3-4 days with clinical improvement. Patient will require surgical evaluation as an outpatient for future colectomy due to recurrent diverticulitis. Hypertension: Will provide IV medication at this time. Once taking oral intake then will restart home medication. Depression with anxiety: Will provide IV medication at this time. Once taking oral intake then will restart home medication. Time Spent Managing Pts Care (In Minutes): 55
--- NOTE | 2019-08-05 15:21 | P.PN ---
Subjective Date of Service: 08/05/19 Primary Care Provider: Dr. Dean; GI-Dr. Carrillo Chief Complaint: Abdominal pain, failed outpatient treatment Subjective: Improving (pain improving, but continues to have abdominal pain) Physical Examination - Vital Signs Temperature: 98.8 F Blood Pressure: 121/75 Pulse: 91 Respirations: 18 Pulse Ox (%): 98 - Physical Exam General: Alert, In no apparent distress, Cooperative Gastrointestinal: Other (soft, mild to moderate global TTP, worse in LLQ, minimal rebound, and mild voluntary guarding. ) - Studies Medications List Reviewed: Yes Assessment And Plan - Current Problems (Diagnosis) (1) Acute diverticulitis Onset Date: 07/20/18 Current Visit: No Status: Acute - Plan - start sips of clears today - ambulate with assist - serial exams - continue non-operative management - continue zosyn Physician Review Additional Text: Impression: Acute recurrent diverticulitis failed outpatient therapy Hypertension Depression with anxiety Plan: Acute recurrent diverticulitis failed outpatient therapy: KUB unremarkable yesterday. Surgery consulted yesterday. No plan for surgery at this time. Encourage ambulation. Encourage incentive spirometer. Pain improved. Continue NPO. Continue IV antibiotic therapy. Case discussed with Gastroenterology on Tuesday. Anticipate improvement over the next 2-3 days. I will turn the service over to the hospital team tomorrow. I will go over the plan of care with him. At discharge patient will go home on Augmentin and Flagyl. Anticipate discharge in the next 3-4 days with clinical improvement. Patient will require surgical evaluation as an outpatient for future colectomy due to recurrent diverticulitis. Hypertension: Will provide IV medication at this time. Once taking oral intake then will restart home medication. Depression with anxiety: Will provide IV medication at this time. Once taking oral intake then will restart home medication.
[2019-08-05] MEDS: ENOXAPARIN 40 MG/0.4 ML SQ SCH (20:51)
[2019-08-06] MEDS: NA CHLORIDE 0.9% 1,000 ML IV SCH ×4 (00:40→23:11)
[2019-08-06] MEDS: PIPER/TAZO/NS 3.375gm 3.375 GM/100 ML BAG IVPB SCH ×3 (00:40→17:23)
[2019-08-06 05:01] LABS: Absolute Lymphocytes (CBC) 2.1 K/uL (0.7-4.9); Basophils % 0.4 % (0-1.3); Hematocrit 32.4 % (36.0-45.0); Lymphocytes % 17.5 % (15.3-44.8); MPV 7.9 fL (7.6-11.3); RBC Red Blood Cell Count 3.64 M/uL (3.86-4.86)
[2019-08-06 05:07] LABS: Magnesium 2.1 mg/dL (1.8-2.4); Potassium 3.5 mmol/L (3.5-5.1)
[2019-08-06] MEDS: PROMETHAZINE INJ 25 MG/ML AMP IV PRN (08:04)
--- NOTE | 2019-08-06 12:19 | P.PN ---
Subjective Date of Service: 08/06/19 Primary Care Provider: Dr. Dean; GI-Dr. Carrillo Chief Complaint: Abdominal pain, failed outpatient treatment Subjective: No new changes, No C/O voiced (William is feeling slightly better. She still has a mild left lower quadrant pain. She is also reported constipation without bowel movement for the past 5 days. She plans to cut down on her pain meds to avoid worsening constipation.), Tolerating diet, Ambulating , Improving, New changes, C/O voiced, NPO, Working w/ PT, Worsening, Doing well , Demented, Other Physical Examination - Vital Signs Temperature: 97.8 F Blood Pressure: 136/87 Pulse: 88 Respirations: 18 Pulse Ox (%): 100 - Physical Exam General: Alert, In no apparent distress (The patient is alert and awake without apparent distress), Oriented x3, Oriented x2, Oriented x1, Cooperative, Cachectic, Disheveled, Demented, Acute distress, Mild distress, Moderate distress, Severe distress, Confused, Delirious, Unresponsive, Comatose, Obese, Other HEENT: Atraumatic, Normocephalic (Head atraumatic and normocephalic. EOM intact ), PERRLA, Mucous membr. moist/pink, Other, EOMI, Abnormal EOM, Sclerae nonicteric, Scleral icterus Neck: Supple (Neck is supple) Respiratory: Clear to auscultation bilaterally (Lungs are clear to auscultation bilaterally. No wheezing or crackles heard) Cardiovascular: No edema (Normal S1-S2. Regular rate and rhythm. No murmurs heard) Gastrointestinal: Normal bowel sounds (Left lower quadrant tenderness. No guarding. Abdomen is soft.) Musculoskeletal: No clubbing (Good range of motions in all extremities) Integumentary: No rashes (Skin is warm and well-perfused) Neurological: Normal gait (Neuro exam grossly intact with no focal deficits. Speech is mental status intact.) - Studies Medications List Reviewed: Yes Assessment & Plan Physician Review Additional Text: Impression: Acute recurrent diverticulitis failed outpatient therapy Hypertension Depression with anxiety Plan: Acute recurrent diverticulitis failed outpatient therapy: Patient doing well on conservative management which includes antibiotics and pain control. Tolerating clear liquid diet without issues. She was evaluated by General surgery, condition deemed non operative at this point. Plan is to advance diet as tolerated and discharge on Augmentin and Flagyl with an outpatient follow-up with surgery for future colectomy due to recurrent diverticulitis. Hypertension: Blood pressure control for the most part. Mild rise in blood pressure can be attributed to pain. Continue p.r.n. hydralazine Depression with anxiety: Mood is currently stable. Continue p.r.n. lorazepam
[2019-08-06] MEDS: ENOXAPARIN 40 MG/0.4 ML SQ SCH (21:32)
[2019-08-07] MEDS: PIPER/TAZO/NS 3.375gm 3.375 GM/100 ML BAG IVPB SCH ×3 (00:51→16:40)
[2019-08-07] MEDS: ONDANSETRON 4 MG/2 ML VIAL IV PRN ×2 (05:42→14:09)
[2019-08-07] MEDS: NA CHLORIDE 0.9% 1,000 ML IV SCH ×2 (05:44→16:41)
[2019-08-07 06:21] LABS: Absolute Lymphocytes (CBC) 2.8 K/uL (0.7-4.9); Basophils % 0.8 % (0-1.3); Hematocrit 33.3 % (36.0-45.0); Lymphocytes % 37.7 % (15.3-44.8); MPV 8.3 fL (7.6-11.3); RBC Red Blood Cell Count 3.75 M/uL (3.86-4.86)
[2019-08-07 06:38] LABS: BUN Blood Urea Nitrogen 3 mg/dL (7-18); Bicarbonate 28 mmol/L (21-32); Glucose Level 85 mg/dL (74-106); Magnesium 2.2 mg/dL (1.8-2.4); Potassium 3.6 mmol/L (3.5-5.1); Sodium Level 144 mmol/L (136-145)
[2019-08-07] MEDS ORDERED: clonazePAM 0.5 MG TAB PO PRN (11:01)
[2019-08-07] MEDS: lisinopriL 10 MG TAB PO SCH ×2 (11:39→20:48)
[2019-08-07] MEDS: GABAPENTIN 100 MG CAP PO SCH ×2 (13:13→20:52)
--- NOTE | 2019-08-07 19:10 | PN ---
Date of Progress Note: 08/07/2019 Subjective: Patient is seen and examined. Chart reviewed and case discussed with RN. Patient is st ill complaining of mild pain and nausea. Case also discussed with Dr. Carrillo, GI. No fevers overnig ht. Medications: List reviewed. Physical Examination: Vital Signs: Temperature 98, heart rate 81, blood pressure 138/100, respirations 16, O2 of 95% on ro om air. General: Awake, alert, and oriented x3, in some mild distress. Slightly ill-appearing female. CV: S1, S2. Regular rate and rhythm. Peripheral pulses present. Respiratory: Moving air well bilaterally. No wheezing or stridor. No use of accessory muscles. Gastrointestinal: Abdomen is soft. Mild tenderness to palpation. No guarding or rigidity. Positiv e bowel sounds. Extremities: No clubbing, cyanosis, or edema. Neuro: Cranial nerves 2 through 12 intact grossly. No focal neurological deficit. Speech is normal . Laboratory Data: Sodium 144, potassium 3.6, chloride 111, CO2 of 28, BUN 3, creatinine 0.65, glucose 85, calcium 8.1, magnesium 2.2. WBC 7.3, H and H of 11.6 and 33.3, platelets 314, neutrophils 51%. Urine culture growing out mixed alden. Blood cultures, no growth to date. Assessment And Plan: A 43-year-old female with: 1.Acute recurrent diverticulitis, failed outpatient treatment with Cipro and Flagyl. We will contin ue with IV antibiotics. Patient is tolerating full liquids. We will advance to GI soft. Patient madina bernal need to have followup with Surgery for possible partial colectomy due to her recurrent diverticulit is. Appreciate GI and Surgery input. 2.Essential hypertension. We will resume lisinopril. Continue to monitor. 3.Depression, anxiety, stable. Continue lorazepam p.r.n. 4.Deep venous thrombosis prophylaxis addressed. Overall, patient is improving. White count is tren ding down. Tolerating diet. Did have some nausea. We will give trial of GI soft diet and discharge in the next 24 to 48 hours depending on clinical improvement. SA/MODL Voice ID: [id number] Report ID: [id number]
[2019-08-07] MEDS: ENOXAPARIN 40 MG/0.4 ML SQ SCH (20:52)
[2019-08-08] MEDS: PIPER/TAZO/NS 3.375gm 3.375 GM/100 ML BAG IVPB SCH ×2 (01:09→08:38)
[2019-08-08] MEDS: NA CHLORIDE 0.9% 1,000 ML IV SCH (02:06)
[2019-08-08 06:23] LABS: Absolute Lymphocytes (CBC) 2.4 K/uL (0.7-4.9); Basophils % 0.7 % (0-1.3); MPV 8.5 fL (7.6-11.3); RBC Red Blood Cell Count 3.95 M/uL (3.86-4.86)
[2019-08-08] MEDS: lisinopriL 10 MG TAB PO SCH (08:36)
[2019-08-08] MEDS: GABAPENTIN 100 MG CAP PO SCH (08:36)
[2019-08-08 08:39] VITALS: BP 146/80
[2019-08-08] MEDS: ONDANSETRON 4 MG/2 ML VIAL IV PRN (08:43)
[2019-08-08 08:59] VITALS: O2SAT 98
[2019-08-08] MEDS ORDERED: VENLAFAXINE HCL 75 MG TABLET PO SCH (09:00)
[2019-08-08 09:12] VITALS: TEMP 97.2
--- NOTE | 2019-08-09 03:06 | DS ---
Date of Discharge: 08/08/2019 Consultants: 1.Dr. Vaz with General Surgery. 2.Dr. Carrillo with GI. Admitting Diagnoses: 1.Acute recurrent diverticulitis with failed outpatient therapy. 2.Essential hypertension. 3.Depression. 4.Generalized anxiety disorder. Discharge Diagnoses: 1.Acute recurrent diverticulitis, failed outpatient treatment, improved. 2.Essential hypertension, stable. 3.Major depressive disorder, stable. 4.Generalized anxiety disorder, stable. Hospital Course: Patient is a 43-year-old female with past medical history of hypertension, divertic ulitis, depression, anxiety, who has had multiple episodes in 2019, this being her fourth episode. F dominik with GI as an outpatient. Patient was not interested in surgery and for partial colectomy and had been referred to Dr. Hyatt in the past. Patient was on Cipro and Flagyl, did not have any improv ement, continued to have pain, and therefore came into the ER. She was admitted for further evaluati on and treatment. She was started on IV antibiotics with Zosyn. She improved with IV antibiotics. White blood cell count trended down and normalized. Patient was slowly started back on a diet. She was able to tolerate clear liquids and was advanced to full liquids. She was able to tolerate GI sof t, however, did complain of some nausea, which improved with Zofran. Patient's blood cultures were n egative. Her urine culture showed mixed alden. CT scan of the abdomen showed diverticulitis involvi ng a 10 cm long segment at the descending sigmoid colon junction, similar location to September 2018. There was no surgically emergent finding. Dr. Vaz of General Surgery was also consulted. He di d not recommend any emergent surgical intervention at this time. Patient did well overall. She was able to tolerate her diet. She was able to ambulate without difficulty. Pain had subsided and was v eugenio minimal. Did not have any further vomiting. Did report some nausea. Patient was then cleared f or discharge. She will finish off course of Augmentin and Flagyl for a total of 10 days. She has re ceived 4 days of IV antibiotics in the hospital. Activity: As tolerated. Medications: As per medication reconciliation list. Followup: Follow up with primary care physician in 2-3 days. Follow up with GI, Dr. Carrillo in 2 wee ks. Follow up with colorectal surgeon, Dr. Hyatt, in 2-4 weeks at [facility]. Return to ER for worsen ing condition. Diet: [place]. Physical Examination: General: Awake, alert and oriented x3. CV: S1, S2. Respiratory: Moving air well bilaterally. Abdomen: Abdomen is soft. Minimal tenderness to palpation in the left lower quadrant. Bowel sounds positive. No guarding or rigidity. Extremities: No clubbing, cyanosis, or edema. Neurologic: Nonfocal. Total time spent discharging the patient was 37 minutes. /OVI Voice ID: [id number] Report ID: [id number]
== END 2019-08-08 11:25 | disposition home or self-care (01) | DRG 392 ==
LOC: ER 12:39 → ERHOLD 16:01 → 2ND 17:56
PROVIDERS: ADMIT Family Medicine; ATTEND Family Medicine
DX: K57.32 Diverticulitis of large intestine without perforation or abscess without bleeding (principal); I10 Essential (primary) hypertension; F41.8 Other specified anxiety disorders; Z88.2 Allergy status to sulfonamides
CPT/HCPCS: 36415; 74018; 74177; 80048; 80076; 81003; 81015; 81025; 83690; 83735; 84145; 85025; 87040; 87086; 87088; 96361; 96365; 96366; 96368; 96375; 99285; J1650; J2175; J2270; J2405; J2543; J2550; J7030; Q9967